=== PATIENT | male | born 1950 | race Caucasian/White ===

== ENCOUNTER → 2019-04-05 12:06 | Outpatient (BNVA) | payer MEDICARE, MEDICAID, SELFPAY | PROVIDERS: Family Provider Family Medicine; Visit Provider Internal Medicine Cardiovascular Disease | DX: I42.9 Cardiomyopathy, unspecified (principal); I10 Essential (primary) hypertension; J44.9 Chronic obstructive pulmonary disease, unspecified; E11.9 Type 2 diabetes mellitus without complications; F17.210 Nicotine dependence, cigarettes, uncomplicated; Z79.899 Other long term (current) drug therapy | CPT/HCPCS: 80048; 83880; 85025 ==

== ENCOUNTER 2019-04-10 18:14 | Observation (INO) | payer MEDICARE, MEDICAID, SELFPAY ==
[2019-04-09 12:03] VITALS: BMI 24.3
[2019-04-10] VITALS (30 sets, daily range): BP systolic 105–152; BP diastolic 59–90; PULSE 64–94; RESP 15–33; TEMP 36.6; O2SAT 90–99
[2019-04-10] MEDS: diphenhydrAMINE 50 mg Capsule PO (08:17)
--- NOTE | 2019-04-10 08:18 | P.HP_ITS ---
Providers/Chief Complaint Admitting Physician: TONY Tijerina MD Primary Care Provider: Satish Borges Chief Complaint: left heart cath History of Present Illness Christopher Romero is a 68 year old male with a history of coronary disease, status post coronary artery bypass surgery, is presenting with increasing shortness of breath and chest pain. He had a myocardial perfusion imaging which revealed areas of fixed defects with no significant reversible defects. He had a single-vessel bypass surgery many years ago and the cardiac authorization in 2009 revealed total occlusion of the venous graft to the RCA. He had fairly good collaterals from the LAD and circumflex artery. The left-sided vessels were found to have only mild diffuse disease. His echocardiogram revealed ejection fraction of around 29%. This was a significant drop from the previous echocardiogram. In view of his ongoing symptoms and the significant drop in the LV ejection fraction, noted to further evaluate his coronary status, a cardiac catheterization was recommended. Has significant impairment of his functional status because of the shortness of breath. He is known to have high blood pressure, COPD/emphysema, type 2 diabetes, peripheral neuropathy and obstructive sleep apnea. Review of Systems Narrative: CONSTITUTIONAL: No fever or chills. EYES: No blurring of vision or other visual disturbances lately. ENT: No hoarseness of voice, auditory disturbances or sore throat. CARDIOVASCULAR: As mentioned above. RESPIRATORY: Progressive shortness of breath as mentioned above. GASTROINTESTINAL: No hematemesis or melena. GENITOURINARY: Chronic kidney disease INTEGUMENTARY: No skin rashes or history of skin cancer. NEURO: No transient ischemic attacks or amaurosis. PSYCHIATRIC: No history of psychosis or major depression. HEMATOLOGIC: No bleeding disorders or significant anemia. ENDOCRINE: Type 2 diabetes. MUSCULOSKELETAL: No recent joint pain or swelling. ALLERGY/IMMUNOLOGY: As mentioned above. Medications/Allergies Home Medications Medication Instructions Recorded Confirmed Last Taken Type Janumet XR 1 tab PO BID 04/09/19 04/10/19 04/09/19 07:10 History aspirin 81 mg PO DAILY 04/09/19 04/10/19 04/10/19 07:05 History budesonide-formoterol [Symbicort] 2 puff INHALATION BID 04/09/19 04/10/19 04/10/19 07:05 History clonazepam 0.5 mg PO BEDTIME 04/09/19 04/10/19 04/10/19 07:05 History cyclobenzaprine 10 mg PO TID PRN 04/09/19 04/10/19 04/10/19 07:05 History gabapentin 400 mg PO DAILY 04/09/19 04/10/19 04/10/19 07:05 History gemfibrozil 600 mg PO BID 04/09/19 04/10/19 04/10/19 07:05 History glipizide 5 mg PO DAILY 04/09/19 04/10/19 04/09/19 07:10 History lisinopril 10 mg PO BID 04/09/19 04/10/19 04/10/19 07:05 History magnesium oxide 400 mg PO DAILY 04/09/19 04/10/19 04/10/19 07:05 History nebivolol [Bystolic] 2.5 mg PO DAILY 04/09/19 04/10/19 04/10/19 07:05 History omeprazole 20 mg PO DAILY 04/09/19 04/10/19 04/10/19 07:05 History ropinirole [Requip XL] 4 mg PO TID 04/09/19 04/10/19 04/10/19 07:05 History tiotropium bromide [Spiriva with 1 cap INHALATION DAILY 04/09/19 04/10/19 04/10/19 07:05 History HandiHaler] Allergies Allergy/AdvReac Type Severity Reaction Status Date / Time amoxicillin Allergy ALGY-Rash Verified 04/10/19 08:10 atorvastatin [From Lipitor] Allergy Unknown Verified 04/10/19 08:10 metoprolol Allergy Unknown Verified 04/10/19 08:10 Aeeeoha-Pjc-Qfy Reductase Allergy Unknown Verified 04/10/19 08:10 Inhibitor Sulfa (Sulfonamide Allergy Unknown Verified 04/10/19 08:10 Antibiotics) tramadol Allergy ADR-Nausea, Verified 04/10/19 08:10 ADR-Vomiting varenicline [From Chantix] Allergy ADR-Halluci Verified 04/10/19 08:10 vladimir [facility] PFS: Medical History ASHD (arteriosclerotic heart disease) Chest pain COPD (chronic obstructive pulmonary disease) Cough Diabetes mellitus, type II Erectile dysfunction Essential hypertension Hyperlipidemia Ischemic cardiomyopathy IVIS (obstructive sleep apnea) Other emphysema Peripheral neuropathy Restless leg syndrome SOB (shortness of breath) Tobacco dependence Surgical History S/P CABG x 1 SVG --> RCA Family History Father Other emphysema Social History Smoking and tobacco status: current every day smoker cigarettes Packs smoked per day: 1 Years cigarettes smoked: 40 Second hand smoke exposure: No Vital Signs Weight: Weight last 48 hrs Weight 151 lb Blood pressure 152/74 with a heart rate of 92 and respiratory rate of 17/min. He is afebrile. Oxygen saturation 99% room air. Physical Exam Narrative: EXAM NARRATIVE: GENERAL: The patient is alert and oriented times three. Not in any acute distress. Somewhat emaciated. HEENT: No significant pallor, icterus or lymphadenopathy.Oral cavity: There are no mucous membrane lesions. NECK: Trachea appears to be central. No masses noted. No JVD or thyromegaly appreciated. RESPIRATORY: Chest is symmetrical. No intercostals muscle retraction or any accessory muscle activation. There is no chest wall tenderness. Breath sounds are heard bilaterally. No rales or rhonchi heard. No evidence of any consolidation. Intensity of the breath sounds are diminished in the bases. BREASTS: Deferred. HEART: The heart sounds are normal. No S3 or S4. Short systolic murmur in the left sternal border. No diastolic murmurs. No pericardial rub ABDOMEN: No vessel pulsations or distention. No tenderness. No organomegaly appreciated. Bowel sounds are normally heard. : Deferred. RECTAL: Deferred. LYMPHATIC: No lymphadenopathy noted in the neck or groin. EXTREMITIES: No edema or cyanosis. No clubbing. Peripheral pulses are palpated in fairly good volume and amplitude MUSCULOSKELETAL: No acute joint deformities or swelling SKIN: There are no significant scars or skin rash noted. NEUROPSYCHIATRIC: The patient is alert and oriented x3. Appears to be in a good mood. No tremors or rigidity noted. Data Imaging^: Other Imaging: My impression: The myocardial perfusion imaging revealed from January 2019 revealed #1. Myocardial perfusion imaging revealing areas of persistent decreased tracer uptake in the anteroseptal, inferoseptal, septal and apical segments, suggestive of myocardial scarring versus attenuation artifacts. #2. Markedly diminished LV ejection fraction of 25%. #3. LV wall motion abnormalities as mentioned above. #4. Moderately dilated LV cavity with an end-systolic volume of 155 mL. No significant coronary ischemia, based in the above findings. The above features may suggest a nonischemic form of cardiomyopathy. Clinical correlation is recommended The echocardiogram from January 2019 revealed Severe diffuse hypokinesia left ventricle with ejection fraction around 29%. Mildly dilated LV cavity. Mildly increased left atrial size. Thickened aortic valve. There is no pericardial effusion. There are no intracardiac masses. No previous study is available for comparison. A&P Assessment and plan (1) Chest pain: In view of the patient's ongoing chest pain, shortness of breath, worsening LV systolic function, possibility of underlying coronary ischemia causing this is a strong consideration. Even though the Win perfusion imaging did not reveal any significant ischemia, for further evaluation of his coronary status, a repeat cardiac catheterization would be appropriate. Status: Acute Qualifiers: Chest pain type: precordial pain Qualified Code(s): R07.2 - Precordial pain Code(s): R07.9 - Chest pain, unspecified (2) ASHD (arteriosclerotic heart disease): Patient had single-vessel coronary bypass surgery after an attempted PCI of the right coronary artery. Apparently had a dissection of the artery which required emergency single-vessel bypass. He was found to have occluded venous graft by cardiac authorization in 2009. Status: Acute Code(s): I25.10 - Atherosclerotic heart disease of [place] coronary artery without angina pectoris (3) Diabetes mellitus, type II: Patient requires aggressive management of the diabetes. Status: Acute Qualifiers: Diabetes mellitus senior care insulin use: without terminal operator use Diabetes mellitus complication status: with hyperglycemia Qualified Code(s): E11.65 - Type 2 diabetes mellitus with hyperglycemia Code(s): E11.9 - Type 2 diabetes mellitus without complications (4) Ischemic cardiomyopathy: The LV ejection fraction was 29% by echocardiogram. Patient is currently wearing a LifeVest. He may require an ICD for primary prophylaxis in the future. Status: Acute Code(s): I25.5 - Ischemic cardiomyopathy Additional A&P Information Other problems are Chronic kidney disease Mild hyperkalemia Chronic systolic heart failure After reviewing the cardiac authorization data, further management decisions jannette l be made. The risk of bleeding, hematoma, vascular injury, myocardial infarction, CVA, renal failure and other concomitant complications were explained in detail. In view of his chronic kidney disease, worsening of the kidney function requiring hemodialysis was discussed. Patient and the family understood this well and consented to proceed. We will be repeating the BMP today to reevaluate the kidney function the potassium. Based on the results, final decision will be made Coding Level of Care Code Acute Corporate Webmaster for [facility] Fwd Diagnoses Chest pain R07.2 Chest pain type: precordial pain ASHD (arteriosclerotic heart disease) I25.10 Diabetes mellitus, type II E11.65 Diabetes mellitus senior care insulin use: without terminal operator use Diabetes mellitus complication status: with hyperglycemia Ischemic cardiomyopathy I25.5
[2019-04-10 08:55] LABS: Anion Gap 15.4 (5-19); Blood Urea Nitrogen 24 mg/dL (8-23); Calcium 10.1 mg/dL (8.5-10.5); Carbon Dioxide 25 mmol/L (22-29); Chloride 99 mmol/L (98-107); Glomerular Filtration Rate 40.3 mL/min (90-130); Glucose 168 mg/dL (65-115); Osmolality Calculated 279 mOsm/kg (285-295); Potassium 5.4 mmol/L (3.5-5.1); Sodium 134 mmol/L (136-145)
--- NOTE | 2019-04-10 09:05 | SUR.PREOP ---
DR DAVID IN TO DISCUSS PRE OP LAB WORK WITH PATIENT/FAMILY. Procedure postponed at this time. Awaiting further managment in orders. IV fluid orders and future labwork recieved. Noted.
[2019-04-10] MEDS: sodium chloride 0.9% 1,000 ML 125 ML IV (09:15)
--- NOTE | 2019-04-10 09:16 | SUR.PREOP ---
Patient brought back to [facility] pending bed availability. IV fluids started at 135 ml/hr 0.9% NS as ordered. BMP ordered at 1600 as ordered. Patient/Family updated to plan. No c/o voiced at this time. Call light in reach. Family at bedside.
--- NOTE | 2019-04-10 10:09 | SUR.PREOP ---
Patient taken to Out Patient Services for extended recovery and hydration. Pending bed availability. Report to Lenora LOPES.
--- NOTE | 2019-04-10 10:31 | SUR.PREOP ---
1015: PATIENT BROUGHT TO OPS BY DOMINGUEZ LOPES. PT AWAKE AND ALERT. HOOKED TO MONITOR. PT FAMILY PRESENT AND IN ROOM WITH PT. CALL LIGHT IN REACH OF PATIENT. PT IS COMFORTABLE. WILL MONITOR PATIENT UNTIL CATH PROCEDURE AT APPROX 1600.
--- NOTE | 2019-04-10 11:10 | SUR.PREOP ---
1100: PATIENT IS RESTING WITH EYES CLOSED. FAMILY PRESENT AT BEDSIDE.
[2019-04-10 16:25] LABS: Anion Gap 14.1 (5-19); Blood Urea Nitrogen 24 mg/dL (8-23); Calcium 9.3 mg/dL (8.5-10.5); Carbon Dioxide 21 mmol/L (22-29); Chloride 105 mmol/L (98-107); Glomerular Filtration Rate 43.2 mL/min (90-130); Glucose 181 mg/dL (65-115); Osmolality Calculated 281 mOsm/kg (285-295); Potassium 5.1 mmol/L (3.5-5.1); Sodium 135 mmol/L (136-145)
--- NOTE | 2019-04-10 16:42 | XACV_ITS ---
Ht: 168 cm Wt: 70 kg BSA: 1.82 m2 Gender: Male : 1950 Any Known Allergies: Other Exam Priority: Routine Procedure(s): Procedure Description: Diagnostic procedure Procedure Description: Left Heart Catheterization Procedure Description: Venous Graft Catheterization Procedure Description: Coronary Angiography Diagnostic Cath Status: Elective Diagnostic Findings Coronary angiography shows right dominance. The left main is a medium caliber vessel with no significant stenotic lesions. The left hand descending artery is a medium caliber vessel which appears to wrap around the LV apex minimally. It gives off a high diagonal branch with no significant stenotic lesions. Minimal calcification was noted in the proximal segment of the arteries. The lesser complex artery is a medium caliber vessel which also was found to have minimal calcification proximally. The artery gives off a high obtuse marginal branch with no significant stenotic lesions. Left to right collaterals are noted filling up the distal segments of the PDA and the PLV branches of the right coronary artery from the branches of the LAD and circumflex arteries. The right coronary artery appears is a poicl-mq-pudbpv caliber vessel which was found to be totally occluded after the first RV branch. The saphenous venous catheter right coronary artery appears to be chronically occluded. Conclusions This 68-year-old white male with history of hypertension, dyslipidemia, type 2 diabetes, coronary disease, status post coronary bypass surgery, presenting with increasing shortness of breath and chest pains. He had a myocardial perfusion imaging which revealed areas of fixed defects with no significant reversible defects. Patient had echocardiogram done which revealed LV ejection fraction of 29%. Because of his worsening LV systolic function and the ongoing symptoms, in order to further evaluate his coronary status, a cardiac catheterization was recommended. Patient underwent left heart catheterization with a left and right coronary angiogram and LV angiogram today. The findings are as follows. The right coronary artery is chronically occluded. The saphenous venous graft to the right coronary artery also appears to be chronically occluded. Grade 2 uulb-[id number]-[id number] collaterals were noted. The left anterior descending artery and the circumflex artery were found to have minimal disease with no significant stenosis. No significant change from the angiogram findings from 2009. LVEDP was 27 mmHg. LV gram was not performed because of the patient chronic kidney disease. Diagnostic RX Recommendation: medical therapy and/or counseling LV EDP: 27 mmHg Pressures Phase:Rest AO : 165 mmHg / 72 mmHg ( 105 mmHg ) @ 11:25:00 AM 132 mmHg / 76 mmHg ( 101 mmHg ) @ 11:27:00 AM 163 mmHg / 67 mmHg ( 103 mmHg ) @ 11:43:00 AM 164 mmHg / 68 mmHg ( 104 mmHg ) @ 11:43:00 AM LV : 167 mmHg / 6 mmHg / @ 11:43:00 AM 166 mmHg / 7 mmHg / @ 11:43:00 AM Valves Phase:DefaultPhase AV : 4.0 mmHg @ 5:51:54 PM AV Mean Gradient: 8.0 mmHg @ 5:51:54 PM Clinical Evaluation EBL: 5mL-10mL Procedural Details Procedure Consent Obtained. Pre-Procedure Time Out. Identified patient by full name and date of as verbalized by the patient/guarantor. Does the consent match the physician's order: Yes. Accurate & Complete Informed Consent: Yes. Inpatient/Outpatient History & Physical on Chart: Yes. If H&P is completed, is and addenduem needed: No; If yes, is the addendum complete: N/A. Visualize and Verify Site with Patient/Guarantor: N/A. Relevant Radiology Images available: N/A. Pre-op teaching completed and patient verbalized understanding. The risks, benefits, and alternatives of sedation and/or procedure were discussed by physician. The patient agrees to continue. Procedure started. [facility] Clinical Fraility Score: 4: Vulnerable. 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 Chest Pain Symptom Assessment: Atypical Angina. Cardiovascular Instability: No. Correct patient, site and procedure confirmed by cath team. PERRLA. Strong, equal hand wet washer machine bilaterally. Lungs clear x 5 lobes. IV Site on Arrival: 20 gauge in the left anticubital. Pre Procedural Pulses: bilateral dorsalis pedis was 1+. Pre Procedural Pulses: bilateral posterior tibial was 1+. Oxygen started at 2liters/min via nasal canula. IV Fluids: 0.9% NaCl at KVO. 0 mL infused prior to analyst microbiology lab. Baseline sample Acquired. HR: 68 BPM. Physician arrived. bilateral groins was prepped with chloroprep then draped in the usual sterile fashion. Equipment: 5F - Femoral. Heparinized Saline (2 units/mL), 1000 mL bag. Kit, Micropuncture. Cardiac Cath Pack. ACIST Manifold Kit Model BT 2000. Physician scrubbed in. Immediate Pre-Procedure Time Out. Correct Patient: Yes; Correct Procedure: Yes; Correct Site: Yes; Correct Patient Position: Yes; Correct Supplies: Yes; Dried Flammable Prep: Yes; Blood Products Available: N/A;. Lidocaine 1% infiltrated to the right groin. Arterial access obtained with micropuncture set. A CRD 5F JL4 Diagnostic Catheter was advanced over the wire and used for Left coronary angiography. Multiple views taken of left coronary artery. Catheter out. A CRD 5F JR4 Diagnostic Catheter was advanced over the wire and used for Right coronary angiography. Inventory is JJ 5F 11cm Kay Plus Sheath. Multiple views taken of right coronary artery. Catheter out. A 5 lao RCB catheter in over wire. SVG to RCA occluded. Catheter out. A CRD 5F 145 Angled Pig Diagnostic Catheter was advanced over the wire and used for Ventriculography. EDP Sample taken: LV 167/6,29; HR: 76 BPM; SpO2: 97%. Pullback taken: LV 166/7,28; AO 163/67(103); Mean: 8mmHg, Peak to Peak: 4mmHg, SEP: 20sec/min; HR: 76 BPM; SpO2: 97%. Catheter out. Physician scrubbed out. A Suture was successful obtaining hemostatsis at the Right Femoral artery insertion site. Sheath(s) sutured into position with 2-0 silk and sterile 4x4's and Op-site applied over the site. No oozing or signs and symptoms of hematoma noted. Arterial sheath flushed and connected to tranducer and pressure bag with heparinized saline. Post Procedure: Pulses reassessed and unchanged. PERRLA. Strong, equal hand wet washer machine bilaterally. No VTE prophylaxis required. Post-op diagnosis: Cardiomyopathy, single vessel CAD. Complications: none. Contrast type used: Visipaque 320 mgI/mL, 100 mL bottle. Estimated blood loss: 5mL-10mL. Medication's Wasted: Lidocaine 1% = 3 mL. Medication's Wasted: Heparin = 2500 units. Total IV fluids: 55 mL. Procedure completed. Patient transferred by bed to 1st floor. Vital chart was stopped. Site: Right Femoral artery Sheath Size: 5 Fr Hemostasis Method: Suture Hemostasis Success: Successful Procedure Medications Start: 5:13 PM Stop: 5:13 PM Medication: Versed Amount: 1 mg Route: I.V. Start: 5:13 PM Stop: 5:13 PM Medication: Fentanyl Amount: 50 mcg Route: I.V. Start: 5:19 PM Stop: 5:19 PM Medication: Versed Amount: 1 mg Route: I.V. Start: 5:20 PM Stop: 5:20 PM Medication: Fentanyl Amount: 50 mcg Route: I.V. Start: 5:24 PM Stop: 5:24 PM Medication: Heparin Amount: 1500 units Route: I.V. Start: 5:27 PM Stop: 5:27 PM Medication: Versed Amount: 1 mg Route: I.V. Start: 5:33 PM Stop: 5:33 PM Medication: Hydralazine Amount: 10 mg Route: I.V. Start: 5:43 PM Stop: 5:43 PM Medication: Versed Amount: 1 mg Route: I.V. Start: 5:43 PM Stop: 5:43 PM Medication: Hydralazine Amount: 10 mg Route: I.V. I, the attending physician, have reviewed and verified all procedure medications. Yes, all medications given per verbal order History/Risk Factors Hypertension: Yes Dyslipidemia: Yes Diabetic Therapy: Oral Peripheral Arterial Disease (PAD): No Myocardial Infarction (MD): Yes Obesity: No Renal Disease: No Tobacco Use: Current/Recent(w/in 1 year) Prior Interventions PCI: Yes CABG: Yes Valve Surgery: No Report Signatures Finalized by:Dr Aj Tijerina MD [facility] on 04/10/2019 7:34:20 PM
--- NOTE | 2019-04-10 18:27 | P.MISC_ITS ---
Miscellaneous Note Purpose of Documentation: This patient came for an outpatient cardiac authorization today. He was found to be hyperkalemic with a high BUN and creatinine ratio. The morning cardiac catheterization was postponed because of this. He was treated with IV fluid. Repeat BUN and creatinine levels were do wn. His potassium level also came down to the normal level. He underwent a left heart catheterization with a left and right coronary angiogram today. He is admitted to the hospital for IV hydration and close monitoring. He will have a repeat BMP in the morning. If the labs looks okay, he will be discharged home tomorrow. His admission status is observation. Further details of his history and physical, please refer to the outpatient history and physical by me from today. The labs are as follows Abnormal lab results 04/10/19 04/10/19 Range/Units 08:00 15:55 Sodium 134 L 135 L (136-145) mmol/L Potassium 5.4 H (3.5-5.1) mmol/L Carbon Dioxide 21 L (22-29) mmol/L BUN 24 H 24 H (8-23) mg/dL Creatinine 1.7 H 1.6 H (0.7-1.2) mg/dL GFR Calculation 40.3 L 43.2 L (90-130) mL/min Glucose 168 H 181 H (65-115) mg/dL Calculated Osmolal ity 279 L 281 L (285-295) mOsm/k g
[2019-04-10 20:00] LABS: Glucose Point of Care 210 mg/dL (70-110)
--- NOTE | 2019-04-10 21:00 | PC.NURSE ---
Dr. Tijerina in [place] and stated that patient could take his own medications that the facility doesn't supply. Patient/daughter voices understanding. Will monitor.
[2019-04-10] MEDS: lisinopril 10 mg Tablet PO (21:03)
[2019-04-10] MEDS: CLONazepam 0.5 mg Tablet PO (21:03)
[2019-04-10] MEDS: gemfibrozil 600 mg Tablet PO (21:06)
--- NOTE | 2019-04-10 22:47 | PC.NURSE ---
Patient complaining of lying on his back. My butt and back hurt...I've got to do something. This nurse and [employer]ER logged rolled patient onto side and placed a pillow behind his back. Patient now requesting pillow to be removed. Pillow removed per patient request. Will monitor.
--- NOTE | 2019-04-11 01:10 | PC.NURSE ---
Patient in [place] ambulating. Continues to complain of hips hurting, from laying too long. Ice cream given per patient request. Sitting on side of bed. Tylenol given for pain. Will monitor.
[2019-04-11] MEDS: acetaminophen 325 mg Tablet 650 MG PO (01:14)
[2019-04-11 04:16] VITALS: BP 146/84; PULSE 84; RESP 28; TEMP 36.9; O2SAT 91
[2019-04-11 06:22] LABS: Anion Gap 14.1 (5-19); Blood Urea Nitrogen 24 mg/dL (8-23); Calcium 9.2 mg/dL (8.5-10.5); Carbon Dioxide 19 mmol/L (22-29); Chloride 109 mmol/L (98-107); Glomerular Filtration Rate 46.5 mL/min (90-130); Glucose 190 mg/dL (65-115); Osmolality Calculated 286 mOsm/kg (285-295); Potassium 5.1 mmol/L (3.5-5.1); Sodium 137 mmol/L (136-145)
[2019-04-11 06:42] LABS: Glucose Point of Care 186 mg/dL (70-110)
[2019-04-11 07:31] VITALS: BP 158/82; PULSE 72; RESP 30; O2SAT 93
[2019-04-11] MEDS: lisinopril 10 mg Tablet PO (08:09)
[2019-04-11] MEDS: gemfibrozil 600 mg Tablet PO (08:09)
[2019-04-11] MEDS: magnesium oxide 400 mg tablet PO (08:09)
[2019-04-11] MEDS: pantoprazole DR 40 mg Tablet PO (08:10)
[2019-04-11] MEDS: aspirin 81 mg EC Tablet PO (08:10)
[2019-04-11 08:32] VITALS: PULSE 75; RESP 17; O2SAT 97
[2019-04-11 08:36] VITALS: PULSE 78
--- NOTE | 2019-04-11 08:48 | P.PN_ITS ---
Subjective Subjective: Interval history: This is a final progress note patient is feeling okay. No chest pain. No unusual shortness of breath. His vital signs remained stable. Vitals/I&O/Wt Last Vital Signs Temp 98.4 F 04/11/19 04:16 Pulse 78 04/11/19 08:36 Resp 17 04/11/19 08:32 BP 158/82 04/11/19 07:31 Pulse Ox 97 04/11/19 08:32 04/10/19 04/11/19 04/11/19 22:59 06:59 14:59 Intake Total 240 / 240 120 / 120 Output Total 500 / 500 450 / 950 400 / 400 Balance -260 / -260 -450 / -710 -280 / -280 Weight last 48 hrs Weight 151 lb Physical Exam Narrative: EXAM NARRATIVE: GENERAL: The patient is alert and oriented times three. Not in any acute distress. HEENT: No significant pallor, icterus or lymphadenopathy.Oral cavity: There are no mucous membrane lesions. NECK: Trachea appears to be central. No masses noted. No JVD or thyromegaly appreciated. RESPIRATORY: Chest is symmetrical. No intercostals muscle retraction or any accessory muscle activation. There is no chest wall tenderness. Breath sounds are heard bilaterally. No rales or rhonchi heard. No evidence of any consolidation. BREASTS: Deferred. HEART: The heart sounds are normal. No S3 or S4. No new murmurs. No pericardial rub ABDOMEN: No vessel pulsations or distention. No tenderness. No organomegaly a ppreciated. Bowel sounds are normally heard. : Deferred. RECTAL: Deferred. LYMPHATIC: No lymphadenopathy noted in the neck or groin. EXTREMITIES: No edema or cyanosis. No clubbing. Peripheral pulses are palpated in fairly good volume and amplitude MUSCULOSKELETAL: No acute joint deformities or swelling SKIN: There are no significant scars or skin rash noted. NEUROPSYCHIATRIC: The patient is alert and oriented x3. Appears to be in a good mood. No tremors or rigidity noted. Data : 04/11/19 05:49 Other Labs: Abnormal lab results 04/10/19 04/10/19 04/11/19 Range/Units 08:00 15:55 05:49 Sodium 134 L 135 L (136-145) mmol/L Potassium 5.4 H (3.5-5.1) mmol/L Chloride 109 H (98-107) mmol/L Carbon Dioxide 21 L 19 L (22-29) mmol/L BUN 24 H 24 H 24 H (8-23) mg/dL Creatinine 1.7 H 1.6 H 1.5 H (0.7-1.2) mg/dL GFR Calculation 40.3 L 43.2 L 46.5 L (90-130) mL/min Glucose 168 H 181 H 190 H (65-115) mg/dL Calculated Osmolality 279 L 281 L (285-295) mOsm/kg Cardiac catheterization: My impression: The coronary angiogram revealed total occlusion of the right coronary artery, after the RV branch. Mild disease in the left and descending artery and circumflex artery. Elevated LVEDP. A&P Assessment and plan (1) Chronic kidney disease (CKD), stage III (moderate): His repeat BMP shows stable BUN and creatinine. Status: Acute Code(s): N18.3 - Chronic kidney disease, stage 3 (moderate) (2) Ischemic cardiomyopathy: I may start the patient on Entresto. He is advised to stop the lisinopril for today and tomorrow. Start the Entresto day after tomorrow. May continue other medications as it is. Continue the LifeVest. Status: Acute Code(s): I25.5 - Ischemic cardiomyopathy (3) Diabetes mellitus, type II: Importance of aggressive management of the diabetes was discussed. Patient seems to understand this well. Status: Acute Qualifiers: Diabetes mellitus complication status: with hyperglycemia Diabetes mellitus intermediate frame tender insulin use: without intermediate frame tender use Qualified Code(s): E11.65 - Type 2 diabetes mellitus with hyperglycemia Code(s): E11.9 - Type 2 diabetes mellitus without complications (4) ASHD (arteriosclerotic heart disease): The cardiac authorization data was once again discussed. May continue the medications as mentioned above. Status: Acute Code(s): I25.10 - Atherosclerotic heart disease of [place] coronary artery without angina pectoris (5) Chest pain: Patient chest pain, most likely nonischemic. The GERD could be a contributing factor. Since the symptoms are stable, may continue on the current medications. Status: Acute Qualifiers: Chest pain type: precordial pain Qualified Code(s): R07.2 - Precordial pain Code(s): R07.9 - Chest pain, unspecified (6) Benign essential hypertension with target blood pressure below 140/90: I may start him on isosorbide mononitrate 30 mg p.o. daily in addition to the current medications. Because of his intolerance to metoprolol, I may hold off on any beta-jose luis at this time. Status: Acute Code(s): I10 - Essential (primary) hypertension Additional A&P Information Patient's overall cardiovascular status seems to be stable. We will be re- evaluating his LV ejection fraction after 3 months of treatment. Based on the findings, the decision regarding prophylactic ICD will be made. Attestations Medical Necessity Statement*: Discharge home today Coding Level of Care Code Acute Director Of Media for g Fwd Diagnoses Chronic kidney disease (CKD), stage III (moderate) N18.3 Ischemic cardiomyopathy I25.5 Diabetes mellitus, type II E11.65 Diabetes mellitus complication status: with hyperglycemia Diabetes mellitus snf insulin use: without intermediate frame tender use ASHD (arteriosclerotic heart disease) I25.10 Chest pain R07.2 Chest pain type: precordial pain Benign essential hypertension with target blood pressure below 140/90 I10
[2019-04-11 09:11] VITALS: BP 158/82; PULSE 78; RESP 17; TEMP 36.9; O2SAT 97
--- NOTE | 2019-04-11 10:32 | PC.CHAP ---
Pastoral Care Encounter/Spiritual Assessment Type of Contact [] Declined blueberry grower visit [] Patient/Family/Request visit [] Outpatient visit [] Follow-up visit [] Physician referral [] Code/Alert [x] Routine visit [] Staff referral [] Actively dying [] Patient sleeping [x] Family support [] [] Out of room [] Palliative care [] [] Receiving care in room [] Pre-surgical visit [] Trauma [] Long length of stay [] ICU visit [] Other: Relational/Emotional Strength [] Patient feels connected with others/family/visitors/staff [] Distress [] Loneliness/isolation [] Abandonment Spirituality of Patient [x] Person of Mable [x] Attends Jehovah'S Witness of their Mable [] Believes in Prayer [] Reads Bible or Alevism materials [] There are Spiritual issues to be addressed Medical Service Technician Interventions [x] Prayer [] Active listening [] Non-anxious presence [] Spiritual/emotional support [] Crisis/trauma care [] Spiritual counseling [] Bereavement support [] Provided bereavement packet [] Provided Bible/devotional materials [] Provided toy/stuffed animal, coloring book to patient or family member [] Provided Communion [] Anointing/[place] [] Salvation [x] Completed spiritual assessment [] Other: Impact on Illness or Injury [] Angry [] Fearful [] Anxious [] Often cries [] Exhaustion [] Unable to work [] Unable to attend yazidism [] Unable to walk/stand [] Unable to read [] Unable to drive [] Unable to eat/drink [] Unable to sleep [] Unable to be with family [] Patient intubated [] Other: Summary Patient being discharged today. Patient feels he is here because of personal issues at home. Time spent with patient 25min
== END 2019-04-11 10:39 | disposition home or self-care (01) ==
LOC: CSU 18:14
PROVIDERS: Admitting Provider Internal Medicine Cardiovascular Disease; Family Provider Family Medicine; PCP Family Medicine; Visit Provider Internal Medicine Cardiovascular Disease
DX: I25.82 Chronic total occlusion of coronary artery (principal); E78.5 Hyperlipidemia, unspecified; E11.22 Type 2 diabetes mellitus with diabetic chronic kidney disease; I12.9 Hypertensive chronic kidney disease with stage 1 through stage 4 chronic kidney disease, or unspecified chronic kidney disease; N18.3 Chronic kidney disease, stage 3 (moderate); I25.10 Atherosclerotic heart disease of native coronary artery without angina pectoris; Z95.1 Presence of aortocoronary bypass graft; I25.5 Ischemic cardiomyopathy; R07.2 Precordial pain; E11.65 Type 2 diabetes mellitus with hyperglycemia; Z79.82 Long term (current) use of aspirin; J44.9 Chronic obstructive pulmonary disease, unspecified; E11.42 Type 2 diabetes mellitus with diabetic polyneuropathy
CPT/HCPCS: 12345; 36415; 36416; 80048; 82962; 86850; 86900; 93459; 94640; C1769; C1887; C1894; G0378; J0360; J1644; J2001; J2250; J3010; J7030; Q0163; Q9967

== ENCOUNTER → 2019-04-18 10:57 | Outpatient (BNVA) | payer MEDICARE, MEDICAID, SELFPAY | PROVIDERS: Family Provider Family Medicine; PCP Family Medicine; Visit Provider Nurse Practitioner Family | DX: I25.5 Ischemic cardiomyopathy (principal); N18.3 Chronic kidney disease, stage 3 (moderate); I25.10 Atherosclerotic heart disease of native coronary artery without angina pectoris | CPT/HCPCS: 80048 ==

== ENCOUNTER → 2019-04-23 09:05 | Outpatient (BNVA) | payer MEDICARE, MEDICAID, SELFPAY | PROVIDERS: Family Provider Family Medicine; PCP Family Medicine; Visit Provider Internal Medicine Cardiovascular Disease | DX: N18.3 Chronic kidney disease, stage 3 (moderate) (principal) | CPT/HCPCS: 80048 ==

== ENCOUNTER → 2019-05-03 11:23 | Outpatient (BNVA) | payer MEDICARE, MEDICAID, SELFPAY | PROVIDERS: Family Provider Family Medicine; PCP Family Medicine; Visit Provider Internal Medicine Cardiovascular Disease | DX: N18.3 Chronic kidney disease, stage 3 (moderate) (principal) | CPT/HCPCS: 80048 ==

== ENCOUNTER → 2019-05-09 10:23 | Outpatient (BNVA) | payer MEDICARE, MEDICAID, SELFPAY | PROVIDERS: Family Provider Family Medicine; PCP Family Medicine; Visit Provider Internal Medicine Cardiovascular Disease | DX: I25.5 Ischemic cardiomyopathy (principal) | CPT/HCPCS: 80048; 83880 ==

== ENCOUNTER 2019-07-02 13:28 | Outpatient (CLI) | payer MEDICARE, MEDICAID, SELFPAY ==
--- NOTE | 2019-07-02 13:30 | USCV_ITS ---
Christopher Romero Age: 68 Gender: M : 1950 Exam Date: 07/02/2019 13:43 Ordering Phys: Kat Walker Technologist: Phani Carrillo Exam Location: [facility] – [place] Indication: ISCHEMIC CARDIOMYOPATHY BP: 145 / 80 HR: 82 Rhythm: Sinus Technical Quality: Good MEASUREMENTS (Male / Female) Normal Values 2D ECHO LV Diastolic Diameter PLAX 5.1 cm 4.2 - 5.9 / 3.9 - 5.3 cm LV Systolic Diameter PLAX 4.2 cm IVS Diastolic Thickness 0.9 cm 0.6 - 1.0 / 0.6 - 0.9 cm IVS Systolic Thickness 1.0 cm LVPW Diastolic Thickness 1.2 cm 0.6 - 1.0 / 0.6 - 0.9 cm LVPW Systolic Thickness 1.0 cm LVOT Diameter 2.0 cm LV Ejection Fraction 2D Teich 35.5 % LV Ejection Fraction MOD 2C 25.3 % LV Ejection Fraction 2C AL 24.9 % LA Diameter 3.8 cm LA Width 3.9 cm LA Height 4.2 cm RA Width 3.0 cm RA Height 3.5 cm Aorta at Sinotubular Diameter 2.3 cm M-MODE LV Diastolic Diameter MM 6.5 cm 4.2 - 5.9 / 3.9 - 5.3 cm LV Systolic Diameter MM 5.0 cm LV Ejection Fraction MM Teich 44.6 % IVS Diastolic Thickness MM 0.8 cm 0.6 - 1.0 / 0.6 - 0.9 cm IVS Systolic Thickness MM 1.1 cm LVPW Diastolic Thickness MM 1.0 cm 0.6 - 1.0 / 0.6 - 0.9 cm LVPW Systolic Thickness MM 1.3 cm RV Diastolic Diameter MM 1.3 cm Aortic Annulus Diameter 2.8 cm LA Ao Ratio MM 1.4 MV E Point Septal Separation 1.4 cm DOPPLER AV Peak Velocity 184.0 cm/s LVOT Peak Velocity 81.0 cm/s AV Area Cont Eq vti 1.3 cm squared AV Area Cont Eq pk 1.4 cm squared MV Area PHT 5.0 cm squared Mitral E to A Ratio 0.5 MV E' Velocity 6.0 cm/s Mitral E to MV E' Ratio 12.6 Mitral E to LV E' Lateral Ratio 10.1 Mitral E to LV E' Septal Ratio 17.2 TR Peak Velocity 256.0 cm/s TR Peak Gradient 26.3 mmHg TV Peak E Velocity 93.0 cm/s Right Atrial Pressure 3.0 mmHg Pulmonary Artery Systolic Pressu 29.2 mmHg FINDINGS Left Ventricle Diffuse hypokinesia left ventricle with ejection fraction of around 30%. Mildly dilated LV cavity Right Ventricle Normal right ventricular size and systolic function. Right Atrium Normal right atrial size. Left Atrium Mildly increased left atrial size. Mitral Valve Thickened mitral valve. Mild mitral valve regurgitation. Aortic Valve Thickened aortic valve. Tricuspid Valve Trace tricuspid valve regurgitation. Pulmonic Valve Structurally normal pulmonic valve without significant stenosis. There is no pulmonic regurgitation. Pericardium Normal pericardium without effusion. Aorta Normal aortic annulus size. CONCLUSIONS Diffuse hypokinesia left ventricle with ejection fraction of around 30%. Mildly dilated LV cavity. Mildly increased left atrial size. Thickened mitral valve. Mild mitral valve regurgitation. Thickened aortic valve. Trace tricuspid valve regurgitation. Estimated pulmonary artery peak systolic pressure 29 mmHg. There is no pericardial effusion. There are no intracardiac masses. Compared to the previous study from 01/18/2019, there may not be a significant change Dr Aj Tijerina MD [facility] (Electronically Signed) Final Date: 02 Jul 2019 19:03 S
== END 2019-07-02 13:29 | disposition home or self-care (01) ==
PROVIDERS: Family Provider Family Medicine; PCP Family Medicine; Visit Provider Nurse Practitioner Family
DX: I25.5 Ischemic cardiomyopathy (principal); I08.3 Combined rheumatic disorders of mitral, aortic and tricuspid valves
CPT/HCPCS: 93306

== ENCOUNTER → 2019-07-16 11:03 | Outpatient (BNVA) | payer MEDICARE, MEDICAID, SELFPAY | PROVIDERS: Family Provider Family Medicine; PCP Family Medicine; Visit Provider Internal Medicine Cardiovascular Disease | DX: R07.9 Chest pain, unspecified (principal); I25.5 Ischemic cardiomyopathy; I50.33 Acute on chronic diastolic (congestive) heart failure; R06.02 Shortness of breath; I25.10 Atherosclerotic heart disease of native coronary artery without angina pectoris; Z95.810 Presence of automatic (implantable) cardiac defibrillator; I10 Essential (primary) hypertension; E11.65 Type 2 diabetes mellitus with hyperglycemia | CPT/HCPCS: 80048; 83880 ==

== ENCOUNTER → 2019-07-31 11:59 | Outpatient (BNVA) | payer MEDICARE, MEDICAID, SELFPAY | PROVIDERS: Family Provider Family Medicine; PCP Family Medicine; Visit Provider Internal Medicine Cardiovascular Disease | DX: I50.33 Acute on chronic diastolic (congestive) heart failure (principal); Z01.810 Encounter for preprocedural cardiovascular examination | CPT/HCPCS: 80048; 83880 ==

== ENCOUNTER → 2019-08-13 10:29 | Outpatient (BNVA) | payer MEDICARE, MEDICAID, SELFPAY | PROVIDERS: Family Provider Family Medicine; PCP Family Medicine; Visit Provider Internal Medicine Cardiovascular Disease | DX: I25.5 Ischemic cardiomyopathy (principal); I50.33 Acute on chronic diastolic (congestive) heart failure | CPT/HCPCS: 80048; 83880 ==

== ENCOUNTER → 2019-08-27 11:32 | Outpatient (BNVA) | payer MEDICARE, MEDICAID, SELFPAY | PROVIDERS: Family Provider Family Medicine; PCP Family Medicine; Visit Provider Internal Medicine Cardiovascular Disease | DX: I50.33 Acute on chronic diastolic (congestive) heart failure (principal) | CPT/HCPCS: 80048; 83880 ==

== ENCOUNTER 2019-08-29 09:26 | Outpatient (CLI) | payer MEDICARE, MEDICAID, SELFPAY ==
--- NOTE | 2019-08-28 08:00 | USCV_ITS ---
Christopher Romero Age: 69 Gender: M : 1950 Exam Date: 08/29/2019 09:28 Ordering Phys: Aj Tijerina MD Technologist: Sarina Jones [place] [facility] [place]: RENAL STENOSIS Aortic Velocity @ SMA (cm/s) 45.3 RIGHT KIDNEY LEFT KIDNEY Velocity (cm/s) Velocity (cm/s) Sys/Zambrano Sys/Zambrano Resistive Index Resistive Index 155.9 / 19.3 0.88 Proximal Renal Artery 99.8 / 16.5 0.83 148.6 / 21.7 0.85 Mid Renal Artery 99.8 / 19.1 0.81 132.9 / 25.4 0.81 Distal Renal Artery 76.9 / 14.6 0.81 47.3 / 13.5 0.71 Hilar 55.9 / 17.2 0.69 56.7 / 12.5 0.78 Upper Pole 55.5 / 13.7 0.75 71.8 / 14.0 0.80 Mid Pole 40.8 / 11.7 0.71 82.6 / 18.4 0.78 Lower Pole 24.8 / 8.3 0.67 3.40 Renal Aortic Ratio 2.20 Accleration Index (cm/sec2) 571.00 Hilar 2618.0 0 1359.0 Upper Pole 2459.0 0 0 1441.0 Mid Pole 562.00 0 1424.0 Lower Pole 508.00 0 92.5 Kidney Length (mm) 90.6 FINDINGS Elevated renal aortic ratio on the right side Slightly elevated resistive indicis bilaterally Relatively small kidney sizes bilaterally CONCLUSIONS 1. Elevated velocity in the right renal artery, suggestive of 0 to 59% stenosis. 2. Relatively small kidney sizes with elevated resistive indicis, suggestive of medical renal disease No similar previous studies available for comparison Dr Aj Tijerina MD [facility] (Electronically Signed) Final Date: 29 August 2019 23:08 S
== END 2019-08-29 09:27 | disposition home or self-care (01) ==
LOC: RAD 09:30
PROVIDERS: PCP Family Medicine; Visit Provider Internal Medicine Cardiovascular Disease
DX: I10 Essential (primary) hypertension (principal)
CPT/HCPCS: 93975

== ENCOUNTER → 2020-05-21 11:06 | Outpatient (BNVA) | payer MEDICARE, MEDICAID, SELFPAY | PROVIDERS: PCP Family Medicine; Visit Provider Internal Medicine Cardiovascular Disease | DX: R07.9 Chest pain, unspecified (principal); I25.5 Ischemic cardiomyopathy; I50.33 Acute on chronic diastolic (congestive) heart failure; R06.02 Shortness of breath; Z95.810 Presence of automatic (implantable) cardiac defibrillator; I13.0 Hypertensive heart and chronic kidney disease with heart failure and stage 1 through stage 4 chronic kidney disease, or unspecified chronic kidney disease; N18.32 Chronic kidney disease, stage 3b; F17.200 Nicotine dependence, unspecified, uncomplicated | CPT/HCPCS: 80048; 83880 ==

== ENCOUNTER → 2020-06-11 12:05 | Outpatient (BNVA) | payer MEDICARE, MEDICAID, SELFPAY | PROVIDERS: PCP Family Medicine; Visit Provider Internal Medicine Nephrology | DX: N18.32 Chronic kidney disease, stage 3b (principal) | CPT/HCPCS: 80069; 82043; 82310; 83970; 85025 ==

== ENCOUNTER → 2020-12-02 11:25 | Outpatient (BNVA) | payer MEDICARE, MEDICAID, SELFPAY | PROVIDERS: PCP Family Medicine; Visit Provider Internal Medicine Nephrology | DX: N18.32 Chronic kidney disease, stage 3b (principal) | CPT/HCPCS: 80069; 82043; 82306; 82310; 83970 ==

== ENCOUNTER → 2021-05-25 09:33 | Outpatient (BNVA) | payer MEDICARE, MEDICAID, SELFPAY | PROVIDERS: PCP Family Medicine; Visit Provider Internal Medicine Cardiovascular Disease | DX: I25.10 Atherosclerotic heart disease of native coronary artery without angina pectoris (principal); E78.5 Hyperlipidemia, unspecified; Z95.810 Presence of automatic (implantable) cardiac defibrillator; I11.0 Hypertensive heart disease with heart failure; E11.65 Type 2 diabetes mellitus with hyperglycemia; E11.22 Type 2 diabetes mellitus with diabetic chronic kidney disease; N18.32 Chronic kidney disease, stage 3b; Z79.4 Long term (current) use of insulin; Z79.82 Long term (current) use of aspirin; F17.210 Nicotine dependence, cigarettes, uncomplicated | CPT/HCPCS: 80048; 83880; 99214 ==

== ENCOUNTER → 2021-06-08 11:17 | Outpatient (BNVA) | payer MEDICARE, MEDICAID, SELFPAY | PROVIDERS: PCP Family Medicine; Visit Provider Internal Medicine Nephrology | DX: N18.30 Chronic kidney disease, stage 3 unspecified (principal) | CPT/HCPCS: 80069; 82306; 82310; 83970 ==

== ENCOUNTER 2021-07-18 17:03 | Inpatient (IN) | payer MEDICARE, MEDICAID, SELFPAY ==
[2021-07-18] VITALS (8 sets, daily range): BP systolic 116–120; BP diastolic 50–67; PULSE 66–84; RESP 16–20; TEMP 36.6–36.8; O2SAT 92–97; BMI 22.8
--- NOTE | 2021-07-18 17:05 | XRR_ITS ---
PROCEDURE INFORMATION: Exam: XR Chest Exam date and time: 07/18/2021 5:24 PM Age: 70 years old Clinical indication: Pain; Chest pressure; Prior surgery; Surgery type: Pacemaker neck; Additional info: Chest pain TECHNIQUE: Imaging protocol: XR of the chest. Views: 1 view. COMPARISON: CR Chest 1 [place] [id number] 11/06/2015 4:46 PM FINDINGS: Tubes, catheters and devices: Left-sided pacemaker. Lungs: Unremarkable. No consolidation. Pleural spaces: Unremarkable. No pleural effusion. No pneumothorax. Heart/Mediastinum: Unremarkable. No cardiomegaly. Bones/joints: Sternotomy wires. XR/XR chest 1V portable [id number] IMPRESSION: Negative for infiltrate
--- NOTE | 2021-07-18 17:06 | ECG_ITS ---
[facility] Test Date: 2021-07-18 Pat Name: Christopher Romero Department: Room: Gender: Male Catcher Plug: : 1950 Requested By: Hussein Crowley Order Number: [id number] Reese MD: Jack Curtis M.D. Measurements Intervals Ranger Rate: 69 P: 71 RI: 133 QRS: -82 QRSD: 122 T: 89 QT: 428 QTc: 460 Interpretive Statements ELECTRONIC VENTRICULAR PACEMAKER ABNORMAL RHYTHM ECG Compared to ECG 11/07/2015 02:35:16 Sinus rhythm no longer present Left bundle-branch block no longer present Electronically Signed On 07-19-2021 9:21:16 CDT by Jack Curtis M.D. [id number]
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
[2021-07-18 17:56] LABS: Basophils # 0.1 10^3/uL (0.0-0.1); Basophils % 1.3 %; Eosinophils # 0.2 10^3/uL (0.0-0.8); Eosinophils % 2.2 %; Hematocrit 38.1 % (42.0-52.0); Lymphocytes # 1.3 10^3/uL (0.8-4.8); Mean Corpuscular HGB Conc 34.1 g/dL (30.0-36.0); Mean Corpuscular Hemoglobin 32.3 pg (28.0-34.0); Mean Corpuscular Volume 94.5 fl (80-94); Mean Platelet Volume 11.4 fL (7.4-10.4); Monocytes # 0.5 10^3/uL (0.2-0.9); Monocytes % 6.9 %; Neutrophils # 4.79 10^3/uL (1.8-7.7); Neutrophils % 69.3 %; Nucleated Red Blood Cells % 0 %; Platelet Count 168 10^3/cmm (130-400); Red Blood Count 4.03 10^6/uL (4.1-5.3); Red Cell Distribution Width 11.9 % (12.1-15.1); White Blood Count 6.9 10^3/uL (4.0-10.0)
[2021-07-18 18:13] LABS: Alanine Aminotransferase 12 U/L (0-41); Albumin Level 4.5 g/dL (3.5-5.2); Alkaline Phosphatase 129 IU/L (40-130); Anion Gap 20.6 (5-19); Aspartate Amino Transferase 21 U/L (0-40); Blood Urea Nitrogen 64 mg/dL (8-23); Calcium 9.2 mg/dL (8.5-10.5); Carbon Dioxide 22 mmol/L (22-29); Chloride 97 mmol/L (98-107); Globulin 3.4 g/dL (1.3-4.6); Glomerular Filtration Rate 16.3 mL/min (90-130); Glucose 189 mg/dL (65-115); Osmolality Calculated 301 mOsm/kg (285-295); Potassium 5.6 mmol/L (3.5-5.1); Sodium 134 mmol/L (136-145); Total Bilirubin 0.2 mg/dL (0.15-1.2); Total Protein 7.9 g/dL (6.6-8.7)
[2021-07-18 18:14] LABS: Troponin(5th) Baseline 45 ng/L (0-15)
--- NOTE | 2021-07-18 19:06 | ECG_ITS ---
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 Measurements Intervals [place] Rate: 66 P: 70 PA: 137 QRS: -84 QRSD: 124 T: 90 QT: 427 QTc: 448 Interpretive Statements ELECTRONIC VENTRICULAR PACEMAKER ABNORMAL RHYTHM ECG Compared to ECG 07/18/2021 17:10:08 No significant changes Electronically Signed On 07-19-2021 9:27:10 CDT by Jack Curtis M.D. [email or web address]
[2021-07-18] MEDS: morphine 4 mg/mL SDV 1 mL 2 MG IVP ×2 (19:16→21:20)
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
[2021-07-18 19:54] LABS: Troponin 5 2HR 41.93 ng/L (0-15)
[2021-07-18 19:55] LABS: Troponin 5 2HR Delta -3.07 ABS# (0-10)
--- NOTE | 2021-07-18 19:57 | USR_ITS ---
PROCEDURE INFORMATION: Exam: US Duplex Bilateral Extracranial Arteries, Carotid Arteries Exam date and time: 07/18/2021 10:13 PM Age: 70 years old Clinical indication: Syncope and collapse TECHNIQUE: Imaging protocol: Real-time Duplex ultrasound scan of the bilateral carotid and vertebral arteries combining streeter scale, color Doppler and spectral waveform analysis. Bilateral exam. Exam focused on the carotid arteries. COMPARISON: CT cervical spin wo con* [id number] 07/18/2021 5:57 PM FINDINGS: Right Carotid: The peak systolic velocity in the right internal carotid artery is 90.9 cm per second. ICA/CCA = 1.23. There is mild heterogeneous plaque along the distal right CCA, carotid bifurcation and carotid bulb without significant luminal narrowing. Left Carotid: The peak systolic velocity in the left internal carotid artery is 96.3 cm per second. ICA/CCA = 0.94. There is mild heterogeneous plaque along the distal left CCA, carotid bifurcation and carotid bulb without significant luminal narrowing. Antegrade flow is demonstrated in both vertebral arteries. US/CV carotid duplex BI* [id number] IMPRESSION: Mild plaque as described without evidence of hemodynamically significant stenosis at this time based on PSV measurements. Less than 30% ICA stenosis bilaterally. REFERENCES: SRU CRITERIA. The degree of internal carotid artery stenosis is based on criteria defined by the Society of Radiologists in Ultrasound (SRU). Normal is no stenosis. Mild is less than 50% stenosis. Moderate is 50-69% stenosis. Severe is greater than 69% stenosis to near occlusion. Near occlusion is a markedly narrowed lumen. Total occlusion is no detectable patent lumen.
[2021-07-18 20:19] LABS: Magnesium 2.1 mg/dL (1.7-2.3)
[2021-07-18 21:04] LABS: Glucose Point of Care 83 mg/dL (70-110)
[2021-07-18] MEDS: acetaminophen 325 mg Tablet 650 MG PO (21:19)
[2021-07-18] MEDS: sodium polystyrene sulfonate 15 gm/60 mL Btl 30 GM PO (21:19)
[2021-07-18] MEDS: enoxaparin 40 mg/0.4 mL Syringe SUBCUT (21:20)
[2021-07-18] MEDS: gabapentin 400 mg Capsule PO (21:20)
[2021-07-18] MEDS: CLONazepam 1 mg Tablet 2 MG PO (21:20)
[2021-07-18] MEDS: pantoprazole 40 mg SDV IVP (21:21)
[2021-07-18 21:44] LABS: ABG PCO2 40.2 mmHg (35-45); ABG PH Result 7.33 (7.35-7.45); Arterial Blood Gas Hematocrit 37.1 % (42-52); Base Excess ABG -4.6 mmol/L (-2.0-2.0); Blood Gas Allen Test Pos; Blood Gas Sample Site Radial, left; Blood Gas Sample Type Arterial; HCO3 ABG 21.1 mmol/L (22-26); PO2 ABG 53.1 mmHg (80.0-100.0)
--- NOTE | 2021-07-18 23:06 | ECG_ITS ---
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 Measurements Intervals Commerce Rate: 77 P: 72 SD: 131 QRS: -87 QRSD: 132 T: 85 QT: 415 QTc: 471 Interpretive Statements ELECTRONIC VENTRICULAR PACEMAKER ABNORMAL RHYTHM ECG Compared to ECG 07/18/2021 18:56:57 No significant changes Electronically Signed On 07-19-2021 9:27:42 CDT by Jack Curtis M.D. [id number]
[2021-07-19] VITALS (15 sets, daily range): BP systolic 97–141; BP diastolic 60–75; PULSE 73–108; RESP 16–117; TEMP 36.4–38.7; O2SAT 91–95
[2021-07-19 00:13] LABS: Troponin 5 6HR 39.14 ng/L (0-15)
[2021-07-19 00:14] LABS: Troponin 5 6HR Delta -5.86 ng/L (0-12)
--- NOTE | 2021-07-19 00:23 | USCV_ITS ---
Christopher Romero Age: 70 Gender: M : 1950 Exam Date: 07/19/2021 11:17 Ordering Phys: Nilesh Cortes MD Technologist: Sarina Jones Exam Location: [facility] [place] Indication: Syncope BP: 129 / 75 HR: 77 Rhythm: Sinus Technical Quality: Technically difficult study MEASUREMENTS (Male / Female) Normal Values 2D ECHO LV Diastolic Diameter PLAX 4.2 cm 4.2 - 5.9 / 3.9 - 5.3 cm LV Systolic Diameter PLAX 2.1 cm LV Chamber Size 3.3 cm IVS Diastolic Thickness 0.9 cm 0.6 - 1.0 / 0.6 - 0.9 cm IVS Systolic Thickness 1.2 cm LVPW Diastolic Thickness 1.0 cm 0.6 - 1.0 / 0.6 - 0.9 cm LVPW Systolic Thickness 1.3 cm RV Chamber Size 2.6 cm LVOT Diameter 2.0 cm LV Ejection Fraction 2D Teich 81.4 % LV Ejection Fraction MOD 2C 31.9 % LV Ejection Fraction 2C AL 30.4 % LA Diameter 2.7 cm LA Width 2.1 cm LA Height 3.5 cm RA Width 2.8 cm RA Height 2.6 cm Aorta at Sinotubular Diameter 1.8 cm IVC Diameter 1.7 cm M-MODE Aortic Annulus Diameter 2.8 cm LA Ao Ratio MM 1.1 MV E Point Septal Separation 0.4 cm DOPPLER AV Peak Velocity 143.0 cm/s LVOT Peak Velocity 68.0 cm/s AV Area Cont Eq vti 1.3 cm squared AV Area Cont Eq pk 1.5 cm squared MV Area PHT 3.3 cm squared Mitral E to A Ratio 0.9 MV E' Velocity 45.5 cm/s Mitral E to MV E' Ratio 8.3 Mitral E to LV E' Lateral Ratio 7.2 Mitral E to LV E' Septal Ratio 9.8 TR Peak Velocity 174.0 cm/s TR Peak Gradient 12.1 mmHg TR Mean Velocity 140.9 cm/s TR Mean Gradient 8.7 mmHg TR Velocity Time Integral 49.3 cm TV Peak E Velocity 67.0 cm/s Right Atrial Pressure 3.0 mmHg Pulmonary Artery Systolic Pressu 15.1 mmHg PV Peak Velocity 69.0 cm/s RV Acceleration Time 0.1 s RV Ejection Time 0.3 s RV AcT/ET 0.4 FINDINGS Left Ventricle Technically poor quality study with poor acoustic windows. The left ventricle appears to be normal in size. There is likely mild global hypokinesis with ejection fraction around 40 to 45%. Grade 1 diastolic dysfunction. Right Ventricle Normal right ventricular size and systolic function. Right ventricle not well visualized. Normal right ventricular systolic pressure. Right Atrium The right atrium is normal in size. Left Atrium The left atrium is normal in size. Mitral Valve Mitral valve not well visualized. Aortic Valve Aortic valve not well visualized. Tricuspid Valve Tricuspid valve not well visualized. Pulmonic Valve Pulmonic valve not well visualized. Pericardium Normal pericardium without effusion. Aorta Normal ascending aorta dimension. IVC Inferior vena cava not visualized. CONCLUSIONS Technically poor quality study with poor acoustic windows. The left ventricle appears to be normal in size. There is likely mild global hypokinesis with ejection fraction around 40 to 45%. Grade [address] Jack Curtis MD (Electronically Signed) Final Date: 20 July 2021 09:24 S
[2021-07-19 03:53] LABS: Add Urine Microscopic? NO; Charge for UA Resulting for Rev
[2021-07-19 04:27] LABS: Bilirubin Urine Neg (Negative); Blood Urine Neg (Negative); Glucose Urine UA Norm (Normal); Ketones Urine Negative (Negative); Leukocyte Esterase Urine Negative (Negative); Nitrate Urine Negative (Negative); Protein Urine Neg (Negative); Urine Appearance Clear (CLEAR); Urine Color Yellow (Yellow); Urobilinogen Urine Norm (Negative); pH Urine 5 (5-7)
[2021-07-19] MEDS: morphine 4 mg/mL SDV 1 mL 2 MG IVP (04:27)
[2021-07-19 05:41] LABS: Basophils # 0.1 10^3/uL (0.0-0.1); Basophils % 1.2 %; Eosinophils # 0.2 10^3/uL (0.0-0.8); Eosinophils % 2.1 %; Hemoglobin 12.8 g/dL (11.7-16.6); Lymphocytes # 1.5 10^3/uL (0.8-4.8); Lymphocytes % 19.4 %; Mean Corpuscular HGB Conc 33.7 g/dL (30.0-36.0); Mean Platelet Volume 11.6 fL (7.4-10.4); Monocytes # 0.6 10^3/uL (0.2-0.9); Monocytes % 7.6 %; Neutrophils # 5.15 10^3/uL (1.8-7.7); Neutrophils % 69.2 %; Nucleated Red Blood Cells % 0 %; Platelet Count 150 10^3/cmm (130-400); White Blood Count 7.5 10^3/uL (4.0-10.0)
[2021-07-19 05:52] LABS: Estmated Average Glucose 151; Hemoglobin A1C 6.9 % (4.0-6.0)
[2021-07-19 05:56] LABS: INR 1.16 (0.8-1.2)
[2021-07-19 06:19] LABS: Anion Gap 18.9 (5-19); Blood Urea Nitrogen 62 mg/dL (8-23); Calcium 8.9 mg/dL (8.5-10.5); Carbon Dioxide 21 mmol/L (22-29); Chloride 101 mmol/L (98-107); Chol HDL Ratio 4.64 mg/dL (1.0-5.00); Cholesterol 130 mg/dL (0-200); Glucose 240 mg/dL (65-115); HDL Cholesterol 28 mg/dL (60-100); LDL Cholesterol Calculated 71 mg/dL (50-129); LDL HDL Ratio 2.54 RATIO (0.00-3.22); NT Pro B Type Natriuretic Pept 226 pg/mL (0-125); Osmolality Calculated 307 mOsm/kg (285-295); Potassium 4.9 mmol/L (3.5-5.1); Sodium 136 mmol/L (136-145); Thyroid Stimulating Hormone 3.92 uIU/mL (0.27-4.20); Triglycerides 155 mg/dL (0-150)
[2021-07-19 06:50] LABS: Glucose Point of Care 258 mg/dL (70-110)
[2021-07-19] MEDS: insulin lispro 100 unit/1 mL SUBCUT ×2 (09:48→18:15)
[2021-07-19] MEDS: ropinirole 2 mg Tablet 4 MG PO ×2 (09:49→17:57)
[2021-07-19] MEDS: aspirin 81 mg EC Tablet PO (09:49)
[2021-07-19] MEDS: gemfibrozil 600 mg Tablet PO ×2 (09:49→17:58)
[2021-07-19] MEDS: sacubitril/valsartan 24-26 mg Tablet 4 EACH PO (09:49)
[2021-07-19] MEDS: ranolazine (12HR) 500 mg Tablet PO ×2 (09:49→17:58)
[2021-07-19] MEDS: sertraline 50 mg Tablet PO (09:50)
[2021-07-19 11:43] LABS: Glucose Point of Care 134 mg/dL (70-110)
[2021-07-19] MEDS: sodium chloride 0.9% 500 ML 50 ML IV (13:02)
[2021-07-19 14:04] LABS: Influenza A by IFA Negative (Negative); Influenza B by IFA Negative (Negative)
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
[2021-07-19 15:10] LABS: Adenovirus Not Detected (NOT DETECT); Chlamydia Pneumoniae Not Detected (NOT DETECT); Coronavirus 229E,HKU1,NL63,OC4 Not Detected (NOT DETECT); Human Metapneumovirus Not Detected (NOT DETECT); Human Rhinovirus/Enterovirus Not Detected (NOT DETECT); Influenza A Not Detected (NOT DETECT); Influenza A H1 Not Detected (NOT DETECT); Influenza A H1-2009 Not Detected (NOT DETECT); Influenza A H3 Not Detected (NOT DETECT); Influenza B Not Detected (NOT DETECT); Mycoplasma Pneumoniae Not Detected (NOT DETECT); Parainfluenza Virus Type 1 Not Detected (NOT DETECT); Parainfluenza Virus Type 2 Not Detected (NOT DETECT); Parainfluenza Virus Type 3 Not Detected (NOT DETECT); Parainfluenza Virus Type 4 Not Detected (NOT DETECT); Respiratory Syncytial Virus A Not Detected (NOT DETECT); Respiratory Syncytial Virus B Not Detected (NOT DETECT); SARS-COV-2 Not Detected (NOT DETECT)
--- NOTE | 2021-07-19 15:24 | PC.OT ---
OT evaluation with held this date due patient too sleepy, unable to stay awake to participate in Eval. To attempt on a later date.
[2021-07-19] MEDS: HYDROcodone-acetaminophen 5-325 mg Tablet 1 TAB PO ×2 (15:44→23:43)
--- NOTE | 2021-07-19 16:45 | PC.NURSE ---
Contacted [employer] ([phone]) to send pacemaker interrogation report to [place] fax.
[2021-07-19] MEDS: sacubitril/valsartan 24-26 mg Tablet 3 EACH PO (17:58)
[2021-07-19 18:05] LABS: Glucose Point of Care 282 mg/dL (70-110)
[2021-07-19 21:15] LABS: Glucose Point of Care 65 mg/dL (70-110)
[2021-07-19] MEDS: pantoprazole 40 mg SDV IVP (21:36)
[2021-07-19] MEDS: gabapentin 400 mg Capsule PO (21:38)
[2021-07-19] MEDS: CLONazepam 1 mg Tablet 2 MG PO (21:38)
[2021-07-19] MEDS: enoxaparin 30 mg/0.3 mL Syringe SUBCUT (21:39)
[2021-07-19 21:41] LABS: Glucose Point of Care 84 mg/dL (70-110)
--- NOTE | 2021-07-19 23:13 | PC.NURSE ---
Patient lung sounds are noted to be wet and wheezy bilaterally with respirations at 40 and O2 91% on 2L. Spoke with Dr. Dalton and we are holding patient's fluids at this time.
[2021-07-19] MEDS: ipratropium-albuterol 3 mL Neb INHALATION (23:42)
[2021-07-19] MEDS: FUROsemide 10 mg/mL SDV 2mL 20 MG IVP (23:43)
[2021-07-20] VITALS (15 sets, daily range): BP systolic 95–125; BP diastolic 57–67; PULSE 82–107; RESP 16–34; TEMP 36.3–38; O2SAT 90–95
[2021-07-20 05:29] LABS: Basophils # 0.1 10^3/uL (0.0-0.1); Eosinophils # 0.1 10^3/uL (0.0-0.8); Hematocrit 32.5 % (42.0-52.0); Hemoglobin 10.7 g/dL (11.7-16.6); Lymphocytes # 1.1 10^3/uL (0.8-4.8); Lymphocytes % 16.4 %; Mean Corpuscular HGB Conc 32.9 g/dL (30.0-36.0); Mean Corpuscular Hemoglobin 31.7 pg (28.0-34.0); Mean Corpuscular Volume 96.2 fl (80-94); Mean Platelet Volume 11.8 fL (7.4-10.4); Monocytes # 0.5 10^3/uL (0.2-0.9); Monocytes % 7.2 %; Neutrophils # 5.04 10^3/uL (1.8-7.7); Neutrophils % 73.7 %; Nucleated Red Blood Cells % 0 %; Platelet Count 116 10^3/cmm (130-400); Red Blood Count 3.38 10^6/uL (4.1-5.3); Red Cell Distribution Width 11.9 % (12.1-15.1); White Blood Count 6.8 10^3/uL (4.0-10.0)
[2021-07-20 05:44] LABS: Alanine Aminotransferase 8 U/L (0-41); Albumin Level 3.4 g/dL (3.5-5.2); Alkaline Phosphatase 116 IU/L (40-130); Anion Gap 15.8 (5-19); Aspartate Amino Transferase 12 U/L (0-40); Blood Urea Nitrogen 59 mg/dL (8-23); Calcium 8.5 mg/dL (8.5-10.5); Carbon Dioxide 22 mmol/L (22-29); Chloride 99 mmol/L (98-107); Globulin 3.2 g/dL (1.3-4.6); Glomerular Filtration Rate 24.5 mL/min (90-130); Glucose 268 mg/dL (65-115); Osmolality Calculated 300 mOsm/kg (285-295); Potassium 4.8 mmol/L (3.5-5.1); Sodium 132 mmol/L (136-145); Total Bilirubin 0.2 mg/dL (0.15-1.2); Total Protein 6.6 g/dL (6.6-8.7)
[2021-07-20 06:26] LABS: Glucose Point of Care 272 mg/dL (70-110)
--- NOTE | 2021-07-20 07:43 | ECG_ITS ---
[facility] Test Date: 2021-07-20 Pat Name: Christopher Romero Department: Room: 255 Gender: Male Manager Hematology: Vijaya Alvarenga : 1950 Requested By: Nakul Benavides Order Number: [id number] Reese MD: Lynette Lorenzo M.D. Interpretive Statements NAME OF STUDY: LEXISCAN SESTAMIBI STRESS TEST INDICATION: Unstable angina PROCEDURE: At the baseline, the blood pressure was 92/61 mmHg, oxygen saturation 94% with a heart rate of 82 bpm. The electrocardiogram showed A sense V paced rhythm. The Lexiscan was infused over a period of 20 seconds. A total of 0.4 milligrams of Lexiscan was infused. The stress phase was continued for a total of 5 minutes. Heart rate at the end of the stress phase was 90 bpm, oxygen saturation 91 bpm with a blood pressure of 97/56 mmHg. The EKG at the peak infusion revealed a sensed V paced rhythm. Sestamibi was injected 20 seconds after the Lexiscan infusion. Blood pressure at the end of the recovery phase was 95/57 mmHg, oxygen saturation 90% with a heart rate of 90 beats per minute. CONCLUSION: 1. Uninterpretable EKG with LexiScan infusion due to paced rhythm. 2. No LexiScan induced chest pain or cardiac arrhythmia. 3. Normal blood pressure and heart rate response. 4. Sestamibi/sestamibi perfusion scan pending; see separate report. Electronically Signed On 07-20-2021 12:14:35 CDT by Lynette Lorenzo M.D. [id number]
[2021-07-20] MEDS: regadenoson 0.4 Mg/5 ml Syringe IVP (08:46)
[2021-07-20] MEDS: sertraline 50 mg Tablet PO (09:44)
[2021-07-20] MEDS: ropinirole 2 mg Tablet 4 MG PO ×2 (09:44→17:08)
[2021-07-20] MEDS: ranolazine (12HR) 500 mg Tablet PO ×2 (09:44→17:09)
[2021-07-20] MEDS: aspirin 81 mg EC Tablet PO (09:44)
[2021-07-20] MEDS: sacubitril/valsartan 24-26 mg Tablet 3 EACH PO ×2 (09:55→17:09)
[2021-07-20] MEDS: gemfibrozil 600 mg Tablet PO ×2 (09:55→17:09)
[2021-07-20 11:10] LABS: Glucose Point of Care 240 mg/dL (70-110)
[2021-07-20] MEDS: insulin lispro 100 unit/1 mL SUBCUT ×2 (12:16→17:34)
--- NOTE | 2021-07-20 14:31 | NMCV_ITS ---
NM lupe perf SPECT r/s* [id number] Christopher Romero Age: 70 Gender: M : 1950 Exam Date: 07/20/2021 07:06 Ordering Phys: Nakul Benavides MD Technologist: IKE Hartman Exam Location: [facility] Indications: CHEST PAIN STRESS TEST Please see separate stress test report [facility] for full findings IMAGE PROTOCOL Rest/Stress 1 Lexiscan Day Radiopharmaceutical Dose (mCi) Administration Site Administered by Rest: Tc-99m 10.8 IV IKE Waller Sestamibi Stress:Tc-99m 32.9 IV IKE Waller Sestamibi Rest: 20-Jul-2021 60 Discovery 630 Stress: 20-Jul-2021 30 Discovery 630 0.4mg Lexiscan. Supine position only as patient was unable to lay prone. SPECT RESULTS Technical Quality: Excellent Raw Data Analysis: Normal Image Corrections: No attenuation or motion correction applied Summed Stress Score: 2 Summed Rest Score: 4 Summed Difference Score: 0 PERFUSION FINDINGS Small sized perfusion abnormality of mild severity of mid inferoseptal and apical septal kuhn on rest images with slightly improved tracer uptake on stress images. FUNCTIONAL RESULTS (calculated via Gated SPECT) Stress Image LV EF (%): 67 Stress EDV (mL):79 TID: 0.92 Stress ESV (mL):26 FUNCTIONAL FINDINGS: The left ventricle is normal in size. Transient Ischemia Dilatation of 0.92. There is normal left ventricular systolic function. The left ventricular ejection fraction is normal with a value of 67%. There is normal left ventricular wall thickening. Abnormal septal motion. Normal end-diastolic and end-systolic volumes. IMPRESSIONS 1. Small sized perfusion abnormality of mild severity of mid inferoseptal and apical septal kuhn. This may represent attenuation artifact or old myocardial infarction. 2. Overall left ventricular systolic function is normal without regional wall motion abnormalities, LVEF=67%. 3. Uninterpretable EKG due to V paced rhythm with Lexiscan infusion. 4. No coronary ischemia based on the study. Lynette Lorenzo MD (Electronically Signed) Final Date: 20 July 2021 12:25 S
[2021-07-20] MEDS: ipratropium-albuterol 3 mL Neb INHALATION ×2 (14:53→20:25)
[2021-07-20 17:06] LABS: Glucose Point of Care 209 mg/dL (70-110)
--- NOTE | 2021-07-20 17:17 | PC.NURSE ---
Spoke with Romeo Alan that works with Dr. Tijerina and he said would interrogate the pace maker tomorrow if it is a [employer] and if not he can get us who we need. [phone]
--- NOTE | 2021-07-20 17:26 | XRR_ITS ---
PROCEDURE INFORMATION: Exam: XR Right Shoulder Exam date and time: 07/20/2021 6:29 PM Age: 70 years old Clinical indication: Pain; Shoulder; Right; Additional info: Pain, unable to raise TECHNIQUE: Imaging protocol: XR Right shoulder. Views: 2 or more views. COMPARISON: CT cervical spin wo con* [id number] 07/18/2021 5:57 PM FINDINGS: Bones/joints: Moderate acromioclavicular joint osteoarthritis. Humeral head elevation suggestive of underlying rotator cuff pathology. Soft tissues: Normal. XR/XR shoulder RT min 2V* [id number] IMPRESSION: 1. Moderate acromioclavicular joint osteoarthritis. 2. Humeral head elevation suggestive of underlying rotator cuff pathology.
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
--- NOTE | 2021-07-20 17:47 | PC.NURSE ---
Spoke with Phani from [employer] and he said the patient did have his pacemaker interrogated and it showed no events since November [address] Hernández notified. Phani said he will try to fax us the report.
[2021-07-20] MEDS: CLONazepam 1 mg Tablet PO (21:29)
[2021-07-20] MEDS: gabapentin 100 mg Capsule 200 MG PO (21:29)
[2021-07-20] MEDS: pantoprazole 40 mg SDV IVP (21:29)
[2021-07-20 21:54] LABS: Glucose Point of Care 189 mg/dL (70-110)
[2021-07-21] VITALS (10 sets, daily range): BP systolic 119–148; BP diastolic 63–79; PULSE 80–93; RESP 17–27; TEMP 36.8–37.7; O2SAT 94–100
[2021-07-21] MEDS: ipratropium-albuterol 3 mL Neb INHALATION ×2 (02:58→08:04)
[2021-07-21 04:28] LABS: ABG PCO2 42.7 mmHg (35-45); ABG PH Result 7.32 (7.35-7.45); Alveolar-Arterial Oxygen Gradi 10.8 mmHg (5-10); Arterial Blood Gas Hematocrit 31.2 % (42-52); Blood Gas Allen Test Pos; Blood Gas Operator Identificat WALCI; Blood Gas Sample Site Radial, right; Blood Gas Sample Type Arterial; Carboxyhemoglobin 1.1 %THgb (0.4-20.1); HGB O2 Sat 94.6 % (95-100); Ionized Calcium Level - ABG 1.2 mmol/L (1.1-1.4); Oxygen Device BIPAP; Oxygen Saturation ABG 96.7; PO2 ABG 76.1 mmHg (80.0-100.0); Potassium Level - ABG 4.4 mmol/L (3.5-5.0); Total Hemoglobin 10.2 g/dL (14-18)
[2021-07-21 06:10] LABS: Basophils % 0.5 %; Eosinophils # 0.1 10^3/uL (0.0-0.8); Eosinophils % 1.6 %; Hematocrit 31.4 % (42.0-52.0); Hemoglobin 10.3 g/dL (11.7-16.6); Lymphocytes # 0.6 10^3/uL (0.8-4.8); Lymphocytes % 11.6 %; Mean Corpuscular HGB Conc 32.8 g/dL (30.0-36.0); Mean Corpuscular Hemoglobin 31.5 pg (28.0-34.0); Mean Platelet Volume 12.1 fL (7.4-10.4); Monocytes # 0.5 10^3/uL (0.2-0.9); Monocytes % 9.1 %; Neutrophils # 4.24 10^3/uL (1.8-7.7); Neutrophils % 76.8 %; Nucleated Red Blood Cells % 0 %; Platelet Count 108 10^3/cmm (130-400); Red Blood Count 3.27 10^6/uL (4.1-5.3); Red Cell Distribution Width 11.9 % (12.1-15.1); White Blood Count 5.5 10^3/uL (4.0-10.0)
[2021-07-21 06:33] LABS: Anion Gap 15.5 (5-19); Blood Urea Nitrogen 62 mg/dL (8-23); Calcium 8.9 mg/dL (8.5-10.5); Carbon Dioxide 21 mmol/L (22-29); Chloride 98 mmol/L (98-107); Glomerular Filtration Rate 25.7 mL/min (90-130); Glucose 317 mg/dL (65-115); Osmolality Calculated 300 mOsm/kg (285-295); Potassium 4.5 mmol/L (3.5-5.1); Sodium 130 mmol/L (136-145)
[2021-07-21 06:40] LABS: Glucose Point of Care 420 mg/dL (70-110)
[2021-07-21] MEDS: gemfibrozil 600 mg Tablet PO (08:15)
[2021-07-21] MEDS: sertraline 50 mg Tablet PO (08:15)
[2021-07-21] MEDS: aspirin 81 mg EC Tablet PO (08:15)
[2021-07-21] MEDS: sacubitril/valsartan 24-26 mg Tablet 3 EACH PO (08:15)
[2021-07-21] MEDS: insulin lispro 100 unit/1 mL SUBCUT ×2 (08:15→12:22)
[2021-07-21] MEDS: ranolazine (12HR) 500 mg Tablet PO (08:15)
[2021-07-21] MEDS: ropinirole 2 mg Tablet 3 MG PO (08:16)
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
[2021-07-21 10:51] LABS: Glucose Point of Care 251 mg/dL (70-110)
[2021-07-21] MEDS: HYDROcodone-acetaminophen 5-325 mg Tablet 1 TAB PO (13:40)
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
== END 2021-07-21 16:04 | disposition home or self-care (01) | DRG 682 ==
LOC: ER 18:09 → MEDSURG 21:07
PROVIDERS: Family Medicine; Admitting Provider Student in an Organized Health Care Education/Training Program; Emergency Provider Family Medicine; PCP Family Medicine; Visit Provider Internal Medicine
DX: N17.9 Acute kidney failure, unspecified (principal); G93.41 Metabolic encephalopathy; S32.010A Wedge compression fracture of first lumbar vertebra, initial encounter for closed fracture; I13.0 Hypertensive heart and chronic kidney disease with heart failure and stage 1 through stage 4 chronic kidney disease, or unspecified chronic kidney disease; I25.810 Atherosclerosis of coronary artery bypass graft(s) without angina pectoris; I50.42 Chronic combined systolic (congestive) and diastolic (congestive) heart failure; R55 Syncope and collapse; N18.30 Chronic kidney disease, stage 3 unspecified; E11.22 Type 2 diabetes mellitus with diabetic chronic kidney disease; E11.42 Type 2 diabetes mellitus with diabetic polyneuropathy; I25.10 Atherosclerotic heart disease of native coronary artery without angina pectoris; I25.82 Chronic total occlusion of coronary artery; Z95.1 Presence of aortocoronary bypass graft; Z95.810 Presence of automatic (implantable) cardiac defibrillator; E78.5 Hyperlipidemia, unspecified; G47.30 Sleep apnea, unspecified; Z99.89 Dependence on other enabling machines and devices; J43.9 Emphysema, unspecified; I25.5 Ischemic cardiomyopathy; G25.81 Restless legs syndrome; F17.210 Nicotine dependence, cigarettes, uncomplicated; V89.0XXA Person injured in unspecified motor-vehicle accident, nontraffic, initial encounter; E86.0 Dehydration; Z79.82 Long term (current) use of aspirin; Z79.4 Long term (current) use of insulin; I95.9 Hypotension, unspecified; I44.7 Left bundle-branch block, unspecified; M25.511 Pain in right shoulder; M54.50 Low back pain, unspecified; E87.5 Hyperkalemia
CPT/HCPCS: 36415; 36416; 36600; 70450; 71045; 72100; 72125; 73030; 78452; 80048; 80051; 80053; 80061; 81003; 82330; 82803; 82805; 82962; 83036; 83735; 83880; 84100; 84443; 84484; 85025; 85610; 86140; 87635; 87804; 93005; 93017; 93306; 93880; 94640; 94660; 94664; 96372; 96374; 97110; 97161; 97167; 97530; 99285; A9500; C9113; G0378; J1650; J1815; J1940; J2270; J2785; J7040

== ENCOUNTER → 2021-07-28 12:56 | Outpatient (BNVA) | payer MEDICARE, MEDICAID, SELFPAY | PROVIDERS: PCP Family Medicine; Visit Provider Nurse Practitioner Family | DX: I25.10 Atherosclerotic heart disease of native coronary artery without angina pectoris (principal); I11.0 Hypertensive heart disease with heart failure; I50.33 Acute on chronic diastolic (congestive) heart failure; F17.210 Nicotine dependence, cigarettes, uncomplicated | CPT/HCPCS: 99214 ==

== ENCOUNTER → 2021-08-18 11:45 | Outpatient (BNVA) | payer MEDICARE, MEDICAID, SELFPAY | PROVIDERS: PCP Family Medicine; Visit Provider Internal Medicine Cardiovascular Disease | DX: Z09 Encounter for follow-up examination after completed treatment for conditions other than malignant neoplasm (principal); R55 Syncope and collapse; N17.9 Acute kidney failure, unspecified; E78.5 Hyperlipidemia, unspecified; I50.33 Acute on chronic diastolic (congestive) heart failure; E11.22 Type 2 diabetes mellitus with diabetic chronic kidney disease; N18.30 Chronic kidney disease, stage 3 unspecified; Z79.4 Long term (current) use of insulin; E11.65 Type 2 diabetes mellitus with hyperglycemia; I25.10 Atherosclerotic heart disease of native coronary artery without angina pectoris; Z95.810 Presence of automatic (implantable) cardiac defibrillator; I25.5 Ischemic cardiomyopathy; F17.210 Nicotine dependence, cigarettes, uncomplicated | CPT/HCPCS: 99214 ==

== ENCOUNTER → 2021-11-16 15:03 | Outpatient (BNVA) | payer MEDICARE, MEDICAID, SELFPAY | PROVIDERS: PCP Family Medicine; Visit Provider Internal Medicine Cardiovascular Disease | DX: I13.0 Hypertensive heart and chronic kidney disease with heart failure and stage 1 through stage 4 chronic kidney disease, or unspecified chronic kidney disease (principal); E11.22 Type 2 diabetes mellitus with diabetic chronic kidney disease; F17.210 Nicotine dependence, cigarettes, uncomplicated; N18.30 Chronic kidney disease, stage 3 unspecified; I50.22 Chronic systolic (congestive) heart failure; Z79.84 Long term (current) use of oral hypoglycemic drugs; I25.10 Atherosclerotic heart disease of native coronary artery without angina pectoris; R07.2 Precordial pain; E11.65 Type 2 diabetes mellitus with hyperglycemia; J06.9 Acute upper respiratory infection, unspecified; E78.5 Hyperlipidemia, unspecified; R63.4 Abnormal weight loss; Z68.21 Body mass index [BMI] 21.0-21.9, adult; Z95.810 Presence of automatic (implantable) cardiac defibrillator | CPT/HCPCS: 99214 ==

== ENCOUNTER → 2021-12-08 10:21 | Outpatient (BNVA) | payer MEDICARE, MEDICAID, SELFPAY | PROVIDERS: PCP Family Medicine; Referring Provider Family Medicine; Visit Provider Orthopaedic Surgery | DX: M25.561 Pain in right knee (principal) | CPT/HCPCS: 73560; 73565; 99204 ==

== ENCOUNTER → 2022-01-12 09:35 | Outpatient (BNVA) | payer MEDICARE, MEDICAID, SELFPAY | PROVIDERS: PCP Family Medicine; Visit Provider Orthopaedic Surgery | DX: M25.569 Pain in unspecified knee (principal) | CPT/HCPCS: 99213 ==

== ENCOUNTER 2022-01-14 06:00 | Outpatient (RCR) | payer MEDICARE, MEDICAID, SELFPAY | END 2022-02-13 23:59 | disposition home or self-care (01) | LOC: WPT 06:00 | PROVIDERS: PCP Family Medicine; Visit Provider Orthopaedic Surgery | DX: M25.561 Pain in right knee (principal) | CPT/HCPCS: 97110; 97163; 97530 ==

== ENCOUNTER → 2022-01-19 09:50 | Outpatient (BNVA) | payer MEDICARE, MEDICAID, SELFPAY | PROVIDERS: PCP Family Medicine; Visit Provider Nurse Practitioner | DX: N18.32 Chronic kidney disease, stage 3b (principal) | CPT/HCPCS: 80069; 82043; 82306; 82542; 85025 ==

== ENCOUNTER → 2022-01-29 09:17 | Outpatient (BNVA) | payer MEDICARE, MEDICAID, SELFPAY | PROVIDERS: PCP Family Medicine; Visit Provider Nurse Practitioner | DX: N18.30 Chronic kidney disease, stage 3 unspecified (principal) | CPT/HCPCS: 80069; 82043 ==

== ENCOUNTER → 2022-02-10 08:43 | Outpatient (BNVA) | payer MEDICARE, MEDICAID, SELFPAY | PROVIDERS: PCP Family Medicine; Visit Provider Orthopaedic Surgery | DX: M25.561 Pain in right knee (principal) | CPT/HCPCS: 99213 ==

== ENCOUNTER → 2022-03-12 08:35 | Outpatient (BNVA) | payer MEDICARE, MEDICAID, SELFPAY | PROVIDERS: PCP Family Medicine; Visit Provider Internal Medicine Cardiovascular Disease | DX: Z45.02 Encounter for adjustment and management of automatic implantable cardiac defibrillator (principal) | CPT/HCPCS: 93284 ==

== ENCOUNTER → 2022-05-25 10:04 | Outpatient (BNVA) | payer MEDICARE, MEDICAID, SELFPAY | PROVIDERS: PCP Family Medicine; Visit Provider Internal Medicine Nephrology | DX: N18.32 Chronic kidney disease, stage 3b (principal) | CPT/HCPCS: 80069; 82043; 82306; 82542; 85025 ==

== ENCOUNTER → 2022-09-27 11:10 | Outpatient (BNVA) | payer MEDICARE, MEDICAID, SELFPAY | PROVIDERS: PCP Family Medicine; Visit Provider Internal Medicine Nephrology | DX: N18.30 Chronic kidney disease, stage 3 unspecified (principal) | CPT/HCPCS: 80069; 82043; 82306; 85025 ==

== ENCOUNTER 2023-03-24 12:44 | Inpatient (IN) | payer MEDICARE, SELFPAY ==
[2023-03-24] VITALS (9 sets, daily range): BP systolic 137–174; BP diastolic 55–92; PULSE 64–72; RESP 16–26; TEMP 36.6–36.9; O2SAT 96–100; BMI 26.4; BMI 27.2
--- NOTE | 2023-03-24 12:47 | XR_ITS ---
WS: [id number] XR chest 1V portable [id number] REASON FOR EXAM: sob FINDINGS: Chest is unchanged compared to 07/21/2021. Cardiac device over the left hemithorax with multiple leads to the right heart. Normal thoracic aorta. Normal heart size. Calcified granulomatous disease in both hemithoraces. No acute or subacute pulmonary parenchymal or pleural abnormality. IMPRESSION: Stable chest without acute abnormality.
--- NOTE | 2023-03-24 13:30 | ECG_ITS ---
[facility] Test Date: 2023-03-24 Pat Name: Christopher Romero Department: Room: Gender: Male Figurine Maker: : [id number] Requested By: Adeel Wall Order Number: [id number] Reese MD: Kurtis Hahn M.D. Measurements Intervals [place] Rate: 64 P: 66 AK: 100 QRS: -79 QRSD: 131 T: 128 QT: 456 QTc: 472 Interpretive Statements ELECTRONIC VENTRICULAR PACEMAKER Compared to ECG 07/19/2021 00:04:09 No significant changes Electronically Signed On 03-25-2023 9:30:18 SAND CUTTER by Kurtis Hahn M.D. [email or web address]
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
[2023-03-24 14:05] LABS: Basophils % 0.6 %; Eosinophils % 0.2 %; Hematocrit 31.5 % (37-53); Lymphocytes # 0.6 10^3/uL (0.8-4.8); Mean Corpuscular HGB Conc 31.4 g/dL (30-55); Mean Corpuscular Hemoglobin 31.7 pg (27-33); Mean Platelet Volume 11.7 fL (7.4-10.4); Monocytes # 0.1 10^3/uL (0.2-0.9); Monocytes % 2.1 %; Neutrophils # 5.53 10^3/uL (1.8-7.7); Neutrophils % 87.6 %; Nucleated Red Blood Cells % 0 %; Platelet Count 183 10^3/cmm (157-399); Red Blood Count 3.12 10^6/uL (3.85-5.65); Red Cell Distribution Width 14.5 % (12.1-15.1); White Blood Count 6.31 10^3/uL (3.29-11.43)
[2023-03-24 14:28] LABS: Add Urine Microscopic? YES; Bilirubin Urine Neg (Negative); Blood Urine 2+ (Negative); Glucose Urine UA 4+ (Normal); Ketones Urine Negative (Negative); Leukocyte Esterase Urine Negative (Negative); Nitrate Urine Negative (Negative); Protein Urine 3+ (Negative); Specific Gravity, Urine 1.015 (1.005-1.030); Urine Appearance Clear (CLEAR); Urine Color Yellow (Yellow); Urobilinogen Urine Norm (Negative); pH Urine 5 (5-7)
[2023-03-24 14:29] LABS: Add Urine Culture? No; Bacteria Urine TRACE /hpf; RBC Urine 0-4 /hpf (0-2); Squamous Epithelial Cell Urine 0-4 /hpf (0-5); WBC Urine 0-4 /hpf (0-5)
[2023-03-24 14:30] LABS: Alanine Aminotransferase 12 U/L (0-41); Albumin Level 3.1 g/dL (3.5-5.2); Alkaline Phosphatase 83 U/L (40-130); Anion Gap 22.4 (5-19); Aspartate Amino Transferase 16 U/L (0-40); Blood Urea Nitrogen 58 mg/dL (8-23); Calcium 7.8 mg/dL (8.5-10.5); Carbon Dioxide 19 mmol/L (22-29); Chloride 102 mmol/L (98-107); Globulin 3.5 g/dL (1.3-4.6); Glucose 282 mg/dL (65-115); NT Pro B Type Natriuretic Pept 32280 pg/mL (0-125); Osmolality Calculated 312 mOsm/kg (285-295); Potassium 5.4 mmol/L (3.5-5.1); Sodium 138 mmol/L (136-145); Total Bilirubin 0.2 mg/dL (0.15-1.2); Total Protein 6.6 g/dL (6.6-8.7)
[2023-03-24 15:11] LABS: INR 1.34 (0.8-1.2)
--- NOTE | 2023-03-24 15:12 | CTR_ITS ---
PROCEDURE INFORMATION: Exam: CT Abdomen And Pelvis Without Contrast Exam date and time: 03/24/2023 4:03 PM Age: 72 years old Clinical indication: Other: Dennis, obs nephropathy; Prior surgery; Surgery date: 6+ months; Surgery type: Hernia yesica TECHNIQUE: Imaging protocol: Computed tomography of the abdomen and pelvis without contrast. Radiation optimization: All CT scans at this facility use at least one of these dose optimization techniques: automated exposure control; mA and/or kV adjustment per patient size (includes targeted exams where dose is matched to clinical indication); or iterative reconstruction. COMPARISON: CR XR lumbar spine 2-3V* [id number] 07/20/2021 6:40 PM RADIATION DOSE METRICS: Total DLP (mGy-cm): 615 FINDINGS: Lungs: Trace left-sided pleural effusion. Partially visualized cardiac leads. Diaphragm: No evidence of diaphragmatic defect. Liver: No evidence of focal hepatic lesion within limitation of a noncontrast exam. Gallbladder and bile ducts: Status post cholecystectomy. No evidence of intrahepatic or extrahepatic biliary dilatation. Pancreas: Grossly unremarkable. Spleen: Grossly unremarkable. Adrenal glands: Grossly unremarkable. Kidneys and ureters: No gross renal parenchymal abnormality. No evidence of hydronephrosis or ureteral stone. Stomach and bowel: Few scattered colonic diverticula without evidence of acute diverticulitis. No evidence of bowel obstruction or perienteric inflammatory changes. Appendix: Normal appendix. Intraperitoneal space: No evidence of free air or fluid collection. Vasculature: Moderate aortobiiliac atherosclerosis without evidence of aneurysmal dilitation of abdominal aorta. Lymph nodes: Enlarged right retrocrural node measuring 12 mm short axis. Few nonspecific retroperitoneal nodes, nonenlarged and possibly secondary to lymphovascular congestion. Urinary bladder: Grossly unremarkable. Reproductive: Grossly unremarkable. Bones/joints: No evidence of acute fracture or aggresive osseous lesion. L1 vertebral body anterior wedge compression fracture with approximately 30% height loss. Soft tissues: Diffuse soft tissue edema. No evidence of fluid collection or hematoma in the superficial soft tissues. CT/CT abdomen pelvis wo con [id number] IMPRESSION: 1. No evidence of hydronephrosis. 2. Prominent diffuse superficial soft tissue edema, possibly reflecting anasarca. 3. Trace left-sided pleural effusion. 4. Enlarged retrocrural node, nonspecific. Consider follow-up exam in 6-12 weeks to assess for resolution.
--- NOTE | 2023-03-24 15:52 | PC.PHAR ---
PT TAKES 2-80MG TABS FUROSEMIDE WITH 40 MG TAB FUROSEMIDE DAILY AND DOES NOT TAKE KCL - VERIFIED WITH PT AND PTS FAMILY
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
[2023-03-24 16:41] LABS: D Dimer 3.94 ug/mLFEU (0-0.59)
[2023-03-24 17:07] LABS: Iron 44 ug/dL (59-158); Percent Saturation 12.8 % (20-50); Total Iron Binding Capacity 342 mcg/dl; Unsaturated Iron Binding 298 ug/dL (112-347)
[2023-03-24 17:23] LABS: Procalcitonin 0.12 ng/mL (0-0.5); Vitamin B12 899 pg/mL (232-1245)
--- NOTE | 2023-03-24 17:35 | ECG_ITS ---
[facility] Test Date: 2023-03-24 Pat Name: Christopher Romero Department: Room: 106 Gender: Male Iv Therapy Nurse: : 1950 Requested By: Nakul Benavides Order Number: [id number] Reese MD: Kurtis Hahn M.D. Measurements Intervals [place] Rate: 64 P: 89 IN: 122 QRS: 267 QRSD: 102 T: 125 QT: 423 QTc: 439 Interpretive Statements ELECTRONIC VENTRICULAR PACEMAKER Compared to ECG 03/24/2023 13:30:46 No significant changes Electronically Signed On 03-25-2023 9:29:34 ELECTROPLATER APPRENTICE by Kurtis Hahn M.D. [email or web address]
[2023-03-24 17:40] LABS: Troponin(5th) Baseline 71 ng/L (0-15)
--- NOTE | 2023-03-24 18:17 | ECG_ITS ---
[facility] Test Date: 2023-03-24 Pat Name: Christopher Romero Department: Room: 106 Gender: Male Quantitative Analyst Developer: : 1950 Requested By: Nakul Benavides Order Number: [id number] Reese MD: Kurtis Hahn M.D. Measurements Intervals [place] Rate: 69 P: 119 MO: 135 QRS: 265 QRSD: 87 T: 120 QT: 421 QTc: 451 Interpretive Statements ELECTRONIC VENTRICULAR PACEMAKER Compared to ECG 03/24/2023 17:35:41 No significant changes Electronically Signed On 03-25-2023 9:30:58 LINING PRINTER by Kurtis Hahn M.D. [email or web address]
[2023-03-24 18:28] LABS: ABG PH Result 7.27 (7.35-7.45); Alveolar-Arterial Oxygen Gradi 8.3 mmHg (5-10); Arterial Blood Gas Hematocrit 28.4 % (42-52); Blood Gas Allen Test Pos; Blood Gas Operator Identificat GD; Blood Gas Sample Site Radial, left; Blood Gas Sample Type Arterial; Carboxyhemoglobin 2.2 %THgb (0.4-20.1); HCO3 ABG 20.7 mmol/L (22-26); HGB O2 Sat 92.8 % (95-100); Ionized Calcium Level - ABG 1.1 mmol/L (1.1-1.4); Methemoglobin 0.7 % (0.4-1.5); Oxygen Device NC; Oxygen Saturation ABG 95.6; PO2 ABG 78.9 mmHg (80.0-100.0); PO2 FiO2 Ratio Arterial Blood 0; Potassium Level - ABG 5.1 mmol/L (3.5-5.0); Total Hemoglobin 9.3 g/dL (14-18)
[2023-03-24] MEDS: gemfibrozil 600 mg Tablet PO (18:36)
[2023-03-24] MEDS: FUROsemide 10 mg/mL SDV 10mL 80 MG IVP (18:36)
[2023-03-24] MEDS: heparin 5,000 unit/mL INJ 1 mL 5000 UNIT SUBCUT (18:36)
[2023-03-24 18:50] LABS: Potassium, Radom Urine 25 mmol/L; Urine Creatinine 31 mg/dL (39-259); Urine Random Chloride 94 mmol/L; Urine Random Sodium 96 mmol/L
[2023-03-24 19:38] LABS: Eosinophil Urine No Eosinophils Seen; Urine Eosinophil Count 0 (0-0)
[2023-03-24] MEDS: ipratropium-albuterol 3 mL Neb INHALATION (20:00)
[2023-03-24] MEDS: budesonide 0.5 mg/2 mL Neb INHALATION (20:00)
[2023-03-24 20:43] LABS: Troponin 5 2HR 66.89 ng/L (0-15); Troponin 5 2HR Delta -4.11 ABS# (0-10)
[2023-03-24 21:25] LABS: Glucose Point of Care 442 mg/dL (70-110)
[2023-03-24] MEDS: insulin lispro 100 unit/1 mL SUBCUT (21:25)
[2023-03-24] MEDS: gabapentin 100 mg Capsule 200 MG PO (21:25)
[2023-03-24 23:33] LABS: Troponin 5 6HR 68.42 ng/L (0-15); Troponin 5 6HR Delta -2.58 ng/L (0-12)
[2023-03-25] VITALS (15 sets, daily range): BP systolic 141–178; BP diastolic 59–88; PULSE 60–79; RESP 15–27; TEMP 36.4–37.1; O2SAT 91–99; BMI 26.4
[2023-03-25] MEDS: acetaminophen 325 mg Tablet 650 MG PO (04:03)
[2023-03-25] MEDS: FUROsemide 10 mg/mL SDV 10mL 80 MG IVP ×3 (04:03→18:12)
[2023-03-25] MEDS: morphine 4 mg/mL SDV 1 mL 2 MG IVP (05:08)
[2023-03-25] MEDS: heparin 5,000 unit/mL INJ 1 mL 5000 UNIT SUBCUT ×2 (05:20→18:13)
[2023-03-25 06:18] LABS: Glucose Point of Care 79 mg/dL (70-110)
[2023-03-25 07:30] LABS: Basophils # 0.1 10^3/uL (0.0-0.1); Basophils % 0.9 %; Eosinophils # 0.1 10^3/uL (0.0-0.8); Hematocrit 31.7 % (37-53); Lymphocytes % 25.6 %; Mean Corpuscular HGB Conc 30.6 g/dL (30-55); Mean Corpuscular Hemoglobin 30.8 pg (27-33); Mean Corpuscular Volume 100.6 fl (82-101); Mean Platelet Volume 11.5 fL (7.4-10.4); Monocytes # 0.5 10^3/uL (0.2-0.9); Monocytes % 6.9 %; Neutrophils # 5.01 10^3/uL (1.8-7.7); Neutrophils % 65.1 %; Nucleated Red Blood Cells % 0 %; Platelet Count 182 10^3/cmm (157-399); Red Blood Count 3.15 10^6/uL (3.85-5.65); Red Cell Distribution Width 14.5 % (12.1-15.1)
[2023-03-25] MEDS: ipratropium-albuterol 3 mL Neb INHALATION ×3 (07:37→19:42)
[2023-03-25] MEDS: budesonide 0.5 mg/2 mL Neb INHALATION ×2 (07:37→19:42)
[2023-03-25 07:47] LABS: Estmated Average Glucose 151; Hemoglobin A1C 6.9 % (4.0-6.0)
[2023-03-25 07:49] LABS: Alanine Aminotransferase 9 U/L (0-41); Albumin Level 2.9 g/dL (3.5-5.2); Alkaline Phosphatase 78 U/L (40-130); Anion Gap 18.7 (5-19); Aspartate Amino Transferase 15 U/L (0-40); Blood Urea Nitrogen 62 mg/dL (8-23); Carbon Dioxide 22 mmol/L (22-29); Chloride 106 mmol/L (98-107); Globulin 3.3 g/dL (1.3-4.6); Glucose 74 mg/dL (65-115); Magnesium 1.5 mg/dL (1.7-2.3); Osmolality Calculated 310 mOsm/kg (285-295); Phosphorus 4.9 mg/dL (2.5-4.5); Potassium 4.7 mmol/L (3.5-5.1); Sodium 142 mmol/L (136-145); Total Bilirubin 0.2 mg/dL (0.15-1.2); Total Protein 6.2 g/dL (6.6-8.7)
[2023-03-25 07:57] LABS: Chol HDL Ratio 2.68 mg/dL (1.0-5.00); Cholesterol 142 mg/dL (0-200); HDL Cholesterol 53 mg/dL (60-100); LDL Cholesterol Calculated 78 mg/dL (50-129); LDL HDL Ratio 1.47 RATIO (0.00-3.22); Triglycerides 57 mg/dL (0-150)
[2023-03-25 08:12] LABS: Folate Level 7.7 ng/mL (4.5-32.2)
--- NOTE | 2023-03-25 09:25 | PC.CHAP ---
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 [] Patient/Family/Request visit [] Outpatient visit [] Follow-up visit [] Physician referral [] Code/Alert [x] Routine visit [] Staff referral [] Actively dying [] Patient sleeping [] Family support [] [] Out of room [] Palliative care [] [] Receiving care in room [] Pre-surgical visit [] Trauma [] Long length of stay [] ICU visit [] Other: Relational/Emotional Strength [x] Patient feels connected with others/family/visitors/staff [] Distress [] Loneliness/isolation [] Abandonment Spirituality of Patient [x] Person of Mable [] Attends Anglican of their Mable [x] Believes in Prayer [] Reads Bible or Mu-Ism materials [] There are 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 [x] Prayer [x] Active listening [] Non-anxious presence [x] Spiritual/emotional support [] Crisis/trauma care [] Spiritual counseling [] Bereavement support [] Provided bereavement packet [] Provided Bible/devotional materials [] Provided toy/stuffed animal, coloring book to patient or family member [] Provided Communion [] Anointing/Hull [] Salvation [x] Completed spiritual assessment [] Other: Impact on Illness or Injury [] Angry [] Fearful [] Anxious [] Often cries [] Exhaustion [] Unable to work [] Unable to attend judaism [] Unable to walk/stand [] Unable to read [] Unable to drive [] Unable to eat/drink [] Unable to sleep [] Unable to be with family [] Patient intubated [] Other: Summary Time spent with patient 5 min
[2023-03-25 10:46] LABS: Glucose Point of Care 162 mg/dL (70-110)
[2023-03-25] MEDS: pantoprazole DR 40 mg Tablet PO (11:06)
[2023-03-25] MEDS: gemfibrozil 600 mg Tablet PO ×2 (11:07→18:12)
[2023-03-25] MEDS: aspirin 81 mg EC Tablet PO (11:07)
[2023-03-25] MEDS: ropinirole 0.25 mg Tablet 0.5 MG PO ×3 (11:07→21:04)
[2023-03-25] MEDS: sertraline 100 mg Tablet 50 MG PO (11:07)
[2023-03-25] MEDS: insulin glargine 100 units/1 mL 10 UNIT SUBCUT (11:08)
[2023-03-25] MEDS: magnesium sulfate premix 1 GM/100 ML PIGGYBACK IV (11:08)
[2023-03-25] MEDS: insulin lispro 100 unit/1 mL SUBCUT ×2 (12:44→21:04)
--- NOTE | 2023-03-25 13:12 | P.PN_ITS ---
Subjective 2 Subjective: No acute events overnight. Today morning patient seen resting comfortably in bed, dozed off with his milk in his hands. Wakes up to verbal stimulus and able to complete conversation. States he had a restless night and slept only at 6 AM. Complaining of pain and restlessness legs. Denies any nausea vomiting, headache. Breathing little better. Urine output appreciated. Vitals/I&O/Wt Last Vital Signs Temp 97.6 F 03/25/23 12:00 Pulse 67 03/25/23 12:00 Resp 15 03/25/23 12:00 BP 178/88 03/25/23 12:00 Pulse Ox 91 03/25/23 12:00 O2 Del Method Nasal Cannula 03/25/23 12:00 O2 Flow Rate 2 03/25/23 07:36 03/24/23 03/25/23 03/25/23 22:59 06:59 14:59 Intake Total 700 / 700 700 / 700 Output Total 1150 / 1150 700 / 1850 1850 / 1850 Balance -1150 / -1150 0 / -1150 -1150 / -1150 Weight last 48 hrs Weight 74.191 kg Weight 74.191 kg Weight 75.659 kg Weight 76.476 kg Weight 74.389 kg Physical Exam 2 Narrative: General: No acute distress, AO x3, chronically sick appearing on nasal cannula HEENT: PERRLA, pupils bilaterally equal and reactive Chest: Bilateral bronchial breath sounds all over lung dyer with occasional rhonchi and fine crackles present up to mid chest CVS: S1-S2 regular, bradycardia, soft pansystolic murmur at apex, S3 gallops, no rubs Abdomen: Soft, nontender, no organomegaly, bowel sounds present Neuro: No focal deficits, no facial deformity, AO x3, power 5/5 in all limbs Urinary Catheter Management: Coude: Cath Placed During This Visit: yes Reason for Continuing Indwelling Catheter: Accurate Measurement of Urinary Output in Critically Ill Patients Urinary Catheter Date of Insertion: 03/24/23 Urinary Catheter Time of Insertion: 17:40 Data 03/25/23 06:57 03/25/23 06:57 Micro: Microbiology 03/24/23 14:05 Legionella Urinary Antigen - Final Unknown Source A&P Assessment and plan (1) CHF exacerbation: Last known EF of 40 to 45% with grade 1 diastolic dysfunction, global LV hypokinesia in 2021. Fluid restriction up to 1500 cc. Barnes catheterization. Daily weights. And strict input of charting. Overall 2-1/2 L urine output since admission. Increase IV Lasix to 80 mg 3 times daily. Continue with aggressive IV diuresis. If needed will add metolazone. (2) Acute kidney injury superimposed on CKD: Baseline creatinine 1.8-2.4. Currently elevated. Medical reconstruction done for nephrotoxic drugs. Hold off on Entresto. CT abdomen pelvis appreciated. Concerning for anasarca. Barnes catheterization. Monitor BMP daily. Appreciate urine lites, urine creatinine, urine eosinophils, urinalysis. Fena- 9.6 consistent with postrenal/obstructive. Will continue to monitor. Hyperkalemia has resolved. Received D50/10 units of insulin and IV calcium gluconate yesterday. Continue to monitor daily. (3) Encephalopathy: Unknown etiology. Could be in setting of hypoxia versus polypharmacy given worsening renal functions. Appreciate vitamin B12, ABG. Continue with decreased dose of sertraline at 50 cc/h, home dose of gabapentin 200 mg nightly. Start on low-dose of Requip 0.5 3 times daily. It seems patient takes 6 mg twice daily at home. Frequent reorientation. Continue oxygen supplementation keeping saturation 90%. (4) Ischemic cardiomyopathy: ICD in place. No active chest pain. Troponin slightly elevated most likely in setting of renal dysfunction though troponin cycled nonsignificant (5) ASHD (arteriosclerotic heart disease): Continuing home dose of aspirin, statin. Appreciate A1c, lipid panel. (6) Diabetes mellitus, type II: A1c 6.9 Insulin sliding scale at mild dose protocol. Carb consistent diet. Qualifiers: Diabetes mellitus intermodal customer service insulin use: without intermodal customer service use Diabetes mellitus complication status: with hyperglycemia Qualified Code(s): E11.65 - Type 2 diabetes mellitus with hyperglycemia (7) ICD (implantable cardioverter-defibrillator) in place: Plan CODE STATUS: Discussed in detail with the patient. Daughter Benigno will be the healthcare proxy. Patient does not want any kind of resuscitation or CPR. DNR/DNI. Carb consistent diet. Heparin 5000 every 12 hourly for DVT prophylaxis Protonix OPD prophylaxis Attestations 2 Medical Necessity Statement*: Requires further hospitalization for management of hypoxia in setting of congestive heart failure requiring aggressive IV diuresis, ZEYNEP on CKD Diagnoses CHF exacerbation I50.9 Acute kidney injury superimposed on CKD N17.9; N18.9 Encephalopathy G93.40 Ischemic cardiomyopathy I25.5 ASHD (arteriosclerotic heart disease) I25.10 Type 2 diabetes mellitus with hyperglycemia, without long-term current use of insulin E11.65 Diabetes mellitus skilled nursing insulin use: without intermodal customer service use Diabetes mellitus complication status: with hyperglycemia ICD (implantable cardioverter-defibrillator) in place Z95.810
[2023-03-25 16:58] LABS: Glucose Point of Care 138 mg/dL (70-110)
[2023-03-25 20:04] LABS: Anion Gap 17.9 (5-19); Blood Urea Nitrogen 63 mg/dL (8-23); Calcium 8.2 mg/dL (8.5-10.5); Carbon Dioxide 24 mmol/L (22-29); Chloride 103 mmol/L (98-107); Glucose 205 mg/dL (65-115); Osmolality Calculated 314 mOsm/kg (285-295); Potassium 4.9 mmol/L (3.5-5.1); Sodium 140 mmol/L (136-145)
[2023-03-25 21:03] LABS: Glucose Point of Care 263 mg/dL (70-110)
[2023-03-25] MEDS: gabapentin 100 mg Capsule 200 MG PO (21:04)
[2023-03-26] VITALS (17 sets, daily range): BP systolic 148–168; BP diastolic 70–95; PULSE 62–91; RESP 16–31; TEMP 36.4–37.3; O2SAT 94–100; BMI 26.9
[2023-03-26] MEDS: FUROsemide 10 mg/mL SDV 10mL 80 MG IVP ×2 (00:33→09:50)
[2023-03-26] MEDS: morphine 4 mg/mL SDV 1 mL 2 MG IVP ×2 (00:35→20:56)
[2023-03-26] MEDS: heparin 5,000 unit/mL INJ 1 mL 5000 UNIT SUBCUT ×2 (04:13→17:54)
[2023-03-26 04:19] LABS: Basophils # 0.1 10^3/uL (0.0-0.1); Basophils % 1.6 %; Eosinophils # 0.2 10^3/uL (0.0-0.8); Eosinophils % 3.5 %; Hematocrit 32.9 % (37-53); Lymphocytes % 31.7 %; Mean Corpuscular HGB Conc 30.4 g/dL (30-55); Mean Corpuscular Hemoglobin 30.9 pg (27-33); Mean Corpuscular Volume 101.5 fl (82-101); Mean Platelet Volume 11.4 fL (7.4-10.4); Monocytes # 0.5 10^3/uL (0.2-0.9); Monocytes % 8.3 %; Neutrophils # 3.47 10^3/uL (1.8-7.7); Neutrophils % 54.6 %; Nucleated Red Blood Cells % 0 %; Platelet Count 178 10^3/cmm (157-399); Red Blood Count 3.24 10^6/uL (3.85-5.65); Red Cell Distribution Width 14.4 % (12.1-15.1); White Blood Count 6.35 10^3/uL (3.29-11.43)
[2023-03-26 04:38] LABS: Magnesium 1.6 mg/dL (1.7-2.3)
[2023-03-26 04:57] LABS: Alanine Aminotransferase 10 U/L (0-41); Albumin Level 2.9 g/dL (3.5-5.2); Alkaline Phosphatase 71 U/L (40-130); Anion Gap 16.9 (5-19); Aspartate Amino Transferase 14 U/L (0-40); Blood Urea Nitrogen 63 mg/dL (8-23); Carbon Dioxide 25 mmol/L (22-29); Chloride 108 mmol/L (98-107); Globulin 2.6 g/dL (1.3-4.6); Glucose 51 mg/dL (65-115); Osmolality Calculated 315 mOsm/kg (285-295); Potassium 4.9 mmol/L (3.5-5.1); Sodium 145 mmol/L (136-145); Total Bilirubin 0.2 mg/dL (0.15-1.2); Total Protein 5.5 g/dL (6.6-8.7)
[2023-03-26 06:46] LABS: Glucose Point of Care 50 mg/dL (70-110)
[2023-03-26 07:48] LABS: Glucose Point of Care 126 mg/dL (70-110)
[2023-03-26] MEDS: budesonide 0.5 mg/2 mL Neb INHALATION ×2 (08:02→20:09)
[2023-03-26] MEDS: ipratropium-albuterol 3 mL Neb INHALATION ×3 (08:02→20:09)
[2023-03-26] MEDS: sertraline 100 mg Tablet 50 MG PO (09:50)
[2023-03-26] MEDS: insulin glargine 100 units/1 mL 10 UNIT SUBCUT (09:50)
[2023-03-26] MEDS: aspirin 81 mg EC Tablet PO (09:50)
[2023-03-26] MEDS: pantoprazole DR 40 mg Tablet PO (09:51)
[2023-03-26] MEDS: gemfibrozil 600 mg Tablet PO ×2 (09:51→17:54)
[2023-03-26] MEDS: ropinirole 0.25 mg Tablet 0.5 MG PO ×3 (09:51→20:55)
--- NOTE | 2023-03-26 10:20 | USCV_ITS ---
Christopher Romero Age: 72 Gender: M : 1950 Exam Date: 03/26/2023 11:46 Ordering Phys: Nakul Benavides MD Technologist: Beny Schulte [place] [facility] [place] chf, ef BP: 168 / 86 HR: 74 Rhythm: Sinus Technical Quality: MEASUREMENTS (Male / Female) Normal Values 2D ECHO LVOT Diameter 2.0 cm LV Ejection Fraction MOD 2C 53.5 % LV Ejection Fraction 2C AL 54.3 % LA Diameter 3.5 cm LA Width 3.9 cm LA Height 4.2 cm RA Width 4.1 cm RA Height 4.1 cm Aorta at Sinotubular Diameter 1.8 cm IVC Diameter 2.0 cm M-MODE Aortic Annulus Diameter 2.8 cm LA Ao Ratio MM 1.3 MV E Point Septal Separation 0.7 cm DOPPLER Right Atrial Pressure 3.0 mmHg FINDINGS Left Ventricle Ventricle is relatively poorly seen. There appears to be normal LV size and function. Ejection fraction is estimated at 55%. There are no obvious wall motion disturbances. Grade 1 diastolic dysfunction. Right Ventricle Normal right ventricular size and systolic function. There appears to be a pacemaker wire in the right ventricle Right Atrium The right atrium is normal in size. Left Atrium The left atrium is normal in size. Mitral Valve Structurally normal mitral valve. No mitral valve regurgitation. Aortic Valve Structurally normal trileaflet aortic valve. No aortic valve stenosis. No aortic valve regurgitation. Tricuspid Valve Tricuspid valve not well visualized. Pulmonic Valve Pulmonic valve not well visualized. Pericardium Normal pericardium without effusion. Aorta Normal ascending aorta dimension. IVC The inferior vena cava appears normal. CONCLUSIONS Ventricle is relatively poorly seen. There appears to be normal LV size and function. Ejection fraction is estimated at 55%. There are no obvious wall motion disturbances. Grade 1 diastolic dysfunction. Normal right ventricular size and systolic function. There appears to be a pacemaker wire in the right ventricle The previous study was done in July 2021. It was an equally poor quality study. Overall, the ventricular function seems to be improved. Dr. Jack Curtis MD (Electronically Signed) Final Date: 26 March 2023 15:24 S
[2023-03-26 11:44] LABS: Glucose Point of Care 185 mg/dL (70-110)
[2023-03-26 12:10] LABS: Add Urine Microscopic? YES; Bilirubin Urine Neg (Negative); Blood Urine 2+ (Negative); Glucose Urine UA 2+ (Normal); Ketones Urine Negative (Negative); Leukocyte Esterase Urine Negative (Negative); Nitrate Urine Negative (Negative); Protein Urine 2+ (Negative); Specific Gravity, Urine 1.005 (1.005-1.030); Urine Appearance Clear (CLEAR); Urine Color Colorless (Yellow); Urobilinogen Urine Norm (Negative); pH Urine 6.5 (5-7)
[2023-03-26 12:11] LABS: Add Urine Culture? No; Bacteria Urine TRACE /hpf; Squamous Epithelial Cell Urine 0-4 /hpf (0-5)
[2023-03-26 12:18] LABS: Potassium, Radom Urine 12 mmol/L; Urine Creatinine 16 mg/dL (39-259); Urine Random Chloride 117 mmol/L; Urine Random Sodium 128 mmol/L
[2023-03-26] MEDS: insulin lispro 100 unit/1 mL SUBCUT ×2 (12:23→17:54)
[2023-03-26 12:48] LABS: Eosinophil Urine No Eosinophils Seen; Urine Eosinophil Count 0 (0-0)
[2023-03-26 16:33] LABS: Glucose Point of Care 245 mg/dL (70-110)
--- NOTE | 2023-03-26 16:38 | P.PN_ITS ---
Subjective 2 Subjective: No acute vents overnight. Seen with daughter at bedside. 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 A lot more awake and alert now. Oxygen supplementation at start of interview after 3 L and turned down to 1 L during examination and continued to saturate more than 92%. Vitals/I&O/Wt Last Vital Signs Temp 97.6 F 03/26/23 07:38 Pulse 90 03/26/23 13:41 Resp 18 03/26/23 13:30 BP 168/86 03/26/23 11:23 Pulse Ox 95 03/26/23 13:30 O2 Del Method Nasal Cannula 03/26/23 13:30 O2 Flow Rate 0.5 03/26/23 13:30 03/26/23 03/26/23 03/26/23 06:59 14:59 22:59 Intake Total 400 / 1540 720 / 720 Output Total 2600 / 6500 1600 / 1600 Balance -2200 / -4960 -880 / -880 Weight last 48 hrs Weight 75.75 kg Weight 75.75 kg Weight 74.191 kg Weight 74.191 kg Weight 75.659 kg Weight 76.476 kg Physical Exam 2 Narrative: General: No acute distress, AO x3, chronically sick appearing on nasal cannula HEENT: PERRLA, pupils bilaterally equal and reactive Chest: Bilateral bronchial breath sounds all over lung dyer with occasional rhonchi and fine crackles present up to mid chest CVS: S1-S2 regular, bradycardia, soft pansystolic murmur at apex, S3 gallops, no rubs Abdomen: Soft, nontender, no organomegaly, bowel sounds present Neuro: No focal deficits, no facial deformity, AO x3, power 5/5 in all limbs Urinary Catheter Management: Coude: Cath Placed During This Visit: yes Reason for Continuing Indwelling Catheter: Acute Urinary Retention or Obstruction Urinary Catheter Date of Insertion: 03/24/23 Urinary Catheter Time of Insertion: 17:40 Data 03/26/23 03:54 03/26/23 03:54 Micro: Microbiology 03/24/23 14:05 Bacterial Antigens - Final Urine Kidney A&P Assessment and plan (1) CHF exacerbation: Last known EF of 40 to 45% with grade 1 diastolic dysfunction, global LV hypokinesia in 2021. Resolving. Patient overall around 6.5 L negative Fluid restriction up to 1500 cc. Barnes catheterization. Daily weights. And strict input of charting. Patient already received IV Lasix 80 mg in the morning today. Will hold off on any further diuresis for today. Renal function have continued to remain poor so plan to decrease diuresis for today. Out of bed to chair. PT evaluation. (2) Acute kidney injury superimposed on CKD: Baseline creatinine 1.8-2.4. Currently elevated. Medical reconciliation done for nephrotoxic drugs. Hold off on Entresto. CT abdomen pelvis appreciated. No obstructive nephropathy. Only concerning for anasarca. Barnes catheterization. Monitor BMP daily. Appreciate urine lites, urine creatinine, urine eosinophils, urinalysis. Fena- 9.6 consistent with postrenal/obstructive. Will continue to monitor. Discussed with family that patient's persistent renal dysfunction specially with resolution of symptoms of CHF, patient otherwise clinically improving could be in setting of low EF versus new baseline for patient. We discussed if renal functions do not improve on decreasing diuresis in next 24 hours will plan to consult nephrology. Will plan for limited echocardiogram to reassess EF. No electrolyte abnormalities. (3) Diabetes mellitus, type II: A1c 6.9. Patient having episode of hypoglycemia earlier today morning. Decrease Lantus to 5 units daily, change insulin sliding scale to low-dose protocol with meals. Hold off on at bedtime. Hypoglycemia protocol. Carb consistent diet. 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 Unknown etiology. Could be in setting of hypoxia versus polypharmacy given worsening renal functions. Appreciate vitamin B12, ABG. Continue with decreased dose of sertraline at 50 cc/h, home dose of gabapentin 200 mg nightly, decreased dose of of Requip 0.5 3 times daily. It seems patient takes 6 mg twice daily at home. Frequent reorientation. Continue oxygen supplementation keeping saturation 90%. (5) Ischemic cardiomyopathy: ICD in place. No active chest pain. Troponin slightly elevated most likely in setting of renal dysfunction though troponin cycled nonsignificant (6) ASHD (arteriosclerotic heart disease): Continuing home dose of aspirin, statin. Appreciate A1c, lipid panel. (7) ICD (implantable cardioverter-defibrillator) in place: Plan CODE STATUS: Discussed in detail with the patient. Daughter Benigno will be the healthcare proxy. Patient does not want any kind of resuscitation or CPR. DNR/DNI. Carb consistent diet. Heparin 5000 every 12 hourly for DVT prophylaxis Protonix OPD prophylaxis Attestations 2 Medical Necessity Statement*: Requires further hospitalization for management of persistent renal dysfunction in setting of CKD, congestive heart failure Coding Level of Care Code Acute Code for Chg Fwd Diagnoses CHF exacerbation I50.9 Acute kidney injury superimposed on CKD N17.9; N18.9 Type 2 diabetes mellitus with hyperglycemia, without long-term current use of insulin E11.65 Diabetes mellitus usp insulin use: without usp use Diabetes mellitus complication status: with hyperglycemia Encephalopathy G93.40 Ischemic cardiomyopathy I25.5 ASHD (arteriosclerotic heart disease) I25.10 ICD (implantable cardioverter-defibrillator) in place Z95.810
[2023-03-26] MEDS: gabapentin 100 mg Capsule 200 MG PO (20:55)
[2023-03-26 21:14] LABS: Glucose Point of Care 84 mg/dL (70-110)
[2023-03-27] VITALS (14 sets, daily range): BP systolic 150–176; BP diastolic 69–102; PULSE 75–96; RESP 16–27; TEMP 36.6–37.2; O2SAT 90–97
[2023-03-27 03:57] LABS: Basophils # 0.1 10^3/uL (0.0-0.1); Eosinophils # 0.2 10^3/uL (0.0-0.8); Eosinophils % 3.4 %; Hematocrit 30.8 % (37-53); Lymphocytes # 1.5 10^3/uL (0.8-4.8); Lymphocytes % 21.3 %; Mean Corpuscular HGB Conc 30.8 g/dL (30-55); Mean Corpuscular Hemoglobin 30.9 pg (27-33); Mean Corpuscular Volume 100.3 fl (82-101); Mean Platelet Volume 11.7 fL (7.4-10.4); Monocytes # 0.5 10^3/uL (0.2-0.9); Monocytes % 7.5 %; Neutrophils # 4.55 10^3/uL (1.8-7.7); Neutrophils % 66.5 %; Nucleated Red Blood Cells % 0 %; Platelet Count 162 10^3/cmm (157-399); Red Blood Count 3.07 10^6/uL (3.85-5.65); Red Cell Distribution Width 14.3 % (12.1-15.1); White Blood Count 6.84 10^3/uL (3.29-11.43)
[2023-03-27] MEDS: heparin 5,000 unit/mL INJ 1 mL 5000 UNIT SUBCUT ×2 (04:16→17:38)
[2023-03-27 04:22] LABS: Magnesium 1.6 mg/dL (1.7-2.3); Phosphorus 4.7 mg/dL (2.5-4.5)
[2023-03-27 04:23] LABS: Alanine Aminotransferase 10 U/L (0-41); Alkaline Phosphatase 68 U/L (40-130); Anion Gap 18.8 (5-19); Aspartate Amino Transferase 16 U/L (0-40); Carbon Dioxide 24 mmol/L (22-29); Chloride 105 mmol/L (98-107); Globulin 2.7 g/dL (1.3-4.6); Potassium 4.8 mmol/L (3.5-5.1); Sodium 143 mmol/L (136-145); Total Bilirubin 0.2 mg/dL (0.15-1.2)
[2023-03-27 04:24] LABS: Albumin Level 2.9 g/dL (3.5-5.2); Blood Urea Nitrogen 66 mg/dL (8-23); Calcium 7.9 mg/dL (8.5-10.5); Creatinine Clr Calc Pharmacy 15.0628; Glucose 149 mg/dL (65-115); Osmolality Calculated 318 mOsm/kg (285-295); Total Protein 5.6 g/dL (6.6-8.7)
[2023-03-27 06:18] LABS: Glucose Point of Care 281 mg/dL (70-110)
[2023-03-27] MEDS: budesonide 0.5 mg/2 mL Neb INHALATION (09:01)
[2023-03-27] MEDS: ipratropium-albuterol 3 mL Neb INHALATION ×2 (09:01→14:16)
[2023-03-27] MEDS: insulin lispro 100 unit/1 mL SUBCUT ×3 (09:12→17:38)
[2023-03-27] MEDS: pantoprazole DR 40 mg Tablet PO (09:13)
[2023-03-27] MEDS: sertraline 100 mg Tablet 50 MG PO (09:13)
[2023-03-27] MEDS: gemfibrozil 600 mg Tablet PO ×2 (09:13→17:38)
[2023-03-27] MEDS: aspirin 81 mg EC Tablet PO (09:13)
[2023-03-27] MEDS: insulin glargine 100 units/1 mL 5 UNIT SUBCUT ×2 (09:13→17:38)
[2023-03-27] MEDS: ropinirole 0.25 mg Tablet 0.5 MG PO ×3 (09:13→20:27)
[2023-03-27] MEDS: amlodipine 5 mg Tablet PO (11:00)
[2023-03-27 11:24] LABS: Glucose Point of Care 168 mg/dL (70-110)
--- NOTE | 2023-03-27 12:48 | P.PN_ITS ---
Subjective 2 Subjective: Note no acute events overnight. Patient seen sitting up in chair today. States he is feeling a lot better. Off oxygen supplementation. Complaining of pain and swelling in the left elbow. On examination slight redness on the medial upper arm near the elbow most likely in setting of dependent injury. No tenderness in the elbow no erythema on examination. Urine output of around 4.2 L in last 24 hours. Vitals/I&O/Wt Last Vital Signs Temp 98.5 F 03/27/23 11:09 Pulse 80 03/27/23 11:09 Resp 25 H 03/27/23 11:09 BP 172/74 03/27/23 11:09 Pulse Ox 97 03/27/23 11:09 O2 Del Method Room Air 03/27/23 11:09 O2 Flow Rate 1 03/27/23 09:01 03/26/23 03/27/23 03/27/23 22:59 06:59 14:59 Intake Total 240 / 960 1440 / 2400 480 / 480 Output Total 1000 / 2600 1600 / 4200 625 / 625 Balance -760 / -1640 -160 / -1800 -145 / -145 Weight last 48 hrs Weight 68.039 kg Weight 74.616 kg Weight 74.616 kg Weight 75.75 kg Weight 75.75 kg Physical Exam 2 Narrative: General: No acute distress, AO x3, chronically sick appearing on nasal cannula HEENT: PERRLA, pupils bilaterally equal and reactive Chest: Bilateral bronchial breath sounds all over lung dyer with occasional rhonchi and fine crackles present up to mid chest CVS: S1-S2 regular, bradycardia, soft pansystolic murmur at apex, S3 gallops, no rubs Abdomen: Soft, nontender, no organomegaly, bowel sounds present Neuro: No focal deficits, no facial deformity, AO x3, power 5/5 in all limbs Extremity: Mild erythema present on the left upper arm on the medial aspect near the elbow, no erythema or joint swelling. No tenderness of the elbow joint Urinary Catheter Management: Coude: Cath Placed During This Visit: yes Reason for Continuing Indwelling Catheter: Acute Urinary Retention or Obstruction Urinary Catheter Date of Insertion: 03/24/23 Urinary Catheter Time of Insertion: 17:40 Data 03/27/23 03:42 03/27/23 03:42 A&P Assessment and plan (1) CHF exacerbation: Last known EF of 40 to 45% with grade 1 diastolic dysfunction, global LV hypokinesia in 2021. Resolving. Patient overall around 6.5 L negative Fluid restriction up to 1500 cc. Barnes catheterization. Daily weights. And strict input of charting. Patient already received IV Lasix 80 mg in the morning today. Will hold off on any further diuresis for today. Renal function have continued to remain poor so plan to decrease diuresis for today. Out of bed to chair. PT evaluation. (2) Acute kidney injury superimposed on CKD: Baseline creatinine 1.8-2.4. Currently elevated. Medical reconciliation done for nephrotoxic drugs. Hold off on Entresto. CT abdomen pelvis appreciated. No obstructive nephropathy. Only concerning for anasarca. Barnes catheterization. Monitor BMP daily. Appreciate urine lites, urine creatinine, urine eosinophils, urinalysis. Fena- 9.6 consistent with postrenal/obstructive. Will continue to monitor. Discussed with family that patient's persistent renal dysfunction specially with resolution of symptoms of CHF, patient otherwise clinically improving could be in setting of low EF versus new baseline for patient. We discussed if renal functions do not improve on decreasing diuresis in next 24 hours will plan to consult nephrology. Will plan for limited echocardiogram to reassess EF. No electrolyte abnormalities. (3) Diabetes mellitus, type II: A1c 6.9. Patient having episode of hypoglycemia earlier today morning. Decrease Lantus to 5 units daily, change insulin sliding scale to low-dose protocol with meals. Hold off on at bedtime. Hypoglycemia protocol. Carb consistent diet. 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 Unknown etiology. Could be in setting of hypoxia versus polypharmacy given worsening renal functions. Appreciate vitamin B12, ABG. Continue with decreased dose of sertraline at 50 cc/h, home dose of gabapentin 200 mg nightly, decreased dose of of Requip 0.5 3 times daily. It seems patient takes 6 mg twice daily at home. Frequent reorientation. Continue oxygen supplementation keeping saturation 90%. (5) Ischemic cardiomyopathy: ICD in place. No active chest pain. Troponin slightly elevated most likely in setting of renal dysfunction though troponin cycled nonsignificant (6) ASHD (arteriosclerotic heart disease): Continuing home dose of aspirin, statin. Appreciate A1c, lipid panel. (7) ICD (implantable cardioverter-defibrillator) in place: Plan CODE STATUS: Discussed in detail with the patient. Daughter Benigno will be the healthcare proxy. Patient does not want any kind of resuscitation or CPR. DNR/DNI. Carb consistent diet. Heparin 5000 every 12 hourly for DVT prophylaxis Protonix OPD prophylaxis Plan for the day: Out of bed to chair. Oxygen weaned off. Continue to hold off on any further IV diuresis for now. Congestive heart failure seems to have resolved. Renal function slightly improving though still has ZEYNEP on CKD. Cannot rule out being close to his new baseline of renal functions now. Monitor BMP daily while holding off on diuresis. Overall around 8 L negative. Electrolytes stable. Blood sugar early in the morning elevated now. Change Lantus to 5 units twice daily. Continue with sliding scale low-dose protocol prior to meals. Holding off on bedtime dose for now. Blood pressure is elevated today. Goal blood pressure less than 140/90 mmHg. Add amlodipine 5 mg oral daily for now. Attestations 2 Medical Necessity Statement*: Requires further hospitalization for management of ZEYNEP on CKD in a patient who was originally admitted for congestive heart failure Diagnoses CHF exacerbation I50.9 Acute kidney injury superimposed on CKD N17.9; N18.9 Type 2 diabetes mellitus with hyperglycemia, without long-term current use of insulin E11.65 Diabetes mellitus mcc insulin use: without mcc use Diabetes mellitus complication status: with hyperglycemia Encephalopathy G93.40 Ischemic cardiomyopathy I25.5 ASHD (arteriosclerotic heart disease) I25.10 ICD (implantable cardioverter-defibrillator) in place Z95.810
[2023-03-27 17:23] LABS: Glucose Point of Care 265 mg/dL (70-110)
[2023-03-27] MEDS: gabapentin 100 mg Capsule 200 MG PO (20:27)
[2023-03-27] MEDS: morphine 4 mg/mL SDV 1 mL 2 MG IVP (20:29)
[2023-03-27 20:39] LABS: Glucose Point of Care 161 mg/dL (70-110)
[2023-03-28] VITALS (14 sets, daily range): BP systolic 170–195; BP diastolic 72–91; PULSE 75–86; RESP 17–26; TEMP 36.4–37.2; O2SAT 92–98
[2023-03-28] MEDS: heparin 5,000 unit/mL INJ 1 mL 5000 UNIT SUBCUT ×2 (04:57→17:09)
[2023-03-28 06:39] LABS: Glucose Point of Care 83 mg/dL (70-110)
[2023-03-28] MEDS: aspirin 81 mg EC Tablet PO (08:32)
[2023-03-28] MEDS: ropinirole 0.25 mg Tablet 0.5 MG PO ×3 (08:32→21:23)
[2023-03-28] MEDS: gemfibrozil 600 mg Tablet PO ×2 (08:32→17:09)
[2023-03-28] MEDS: sertraline 100 mg Tablet 50 MG PO (08:32)
[2023-03-28] MEDS: amlodipine 5 mg Tablet PO (08:32)
[2023-03-28] MEDS: pantoprazole DR 40 mg Tablet PO (08:32)
[2023-03-28] MEDS: insulin glargine 100 units/1 mL 5 UNIT SUBCUT ×2 (08:33→17:10)
[2023-03-28] MEDS: budesonide 0.5 mg/2 mL Neb INHALATION ×2 (08:55→21:06)
[2023-03-28] MEDS: ipratropium-albuterol 3 mL Neb INHALATION ×3 (08:55→21:06)
[2023-03-28 11:49] LABS: Glucose Point of Care 149 mg/dL (70-110)
--- NOTE | 2023-03-28 11:55 | PC.SOCIAL ---
IMM updated Updated pt on IMM. No questions voiced. Provided pt a copy. Initialed, dated, & timed copy in chart.
[2023-03-28] MEDS: insulin lispro 100 unit/1 mL SUBCUT ×2 (12:02→17:09)
--- NOTE | 2023-03-28 15:21 | P.PN_ITS ---
Subjective 2 Subjective: Seen this morning. No acute events overnight. Patient is lying for net negative. Creatinine 4.2 as of yesterday. No labs available today. Says he will be going home alone as he lives alone. Vitals/I&O/Wt Last Vital Signs Temp 97.8 F 03/28/23 11:53 Pulse 78 03/28/23 14:00 Resp 26 H 03/28/23 11:53 BP 183/84 03/28/23 11:53 Pulse Ox 94 03/28/23 11:53 O2 Del Method Nasal Cannula 03/28/23 11:53 O2 Flow Rate 2 03/28/23 11:53 03/28/23 03/28/23 03/28/23 06:59 14:59 22:59 Intake Total 500 / 1460 720 / 720 Output Total 550 / 2725 500 / 500 Balance -50 / -1265 220 / 220 Weight last 48 hrs Weight 67.132 kg Weight 73.482 kg Weight 68.039 kg Weight 74.616 kg Weight 74.616 kg Physical Exam 2 Narrative: General: No acute distress, AO x3, chronically sick appearing on nasal cannula Chest: Bilateral bronchial breath sounds all over lung dyer, clear to auscultation bilaterally with very minimal crackles at bases. CVS: S1-S2 regular, regular rate soft pansystolic murmur at apex, Abdomen: Soft, nontender, bowel sounds present Neuro: No focal deficits, no facial deformity, AO x3, Extremity: Mild erythema present on the left upper arm on the medial aspect near the elbow, no erythema or joint swelling. No tenderness of the elbow joint Urinary Catheter Management: Coude: Cath Placed During This Visit: yes Reason for Continuing Indwelling Catheter: Accurate Measurement of Urinary Output in Critically Ill Patients Urinary Catheter Date of Insertion: 03/24/23 Urinary Catheter Time of Insertion: 17:40 Data 03/27/23 03:42 03/27/23 03:42 A&P Assessment and plan (1) CHF exacerbation: Last known EF of 40 to 45% with grade 1 diastolic dysfunction, global LV hypokinesia in 2021. Resolving. Patient overall around 6.5 L negative Fluid restriction up to 1500 cc. Barnes catheterization. Daily weights. And strict input of charting. Patient already received IV Lasix 80 mg in the morning today. Will hold off on any further diuresis for today. Renal function have continued to remain poor. Consult nephrology today. Out of bed to chair. PT evaluation. (2) Acute kidney injury superimposed on CKD: Baseline creatinine 1.8-2.4. Currently elevated. Medical reconciliation done for nephrotoxic drugs. Hold off on Entresto. CT abdomen pelvis appreciated. No obstructive nephropathy. Only concerning for anasarca. Banres catheterization. Monitor BMP daily. Appreciate urine lites, urine creatinine, urine eosinophils, urinalysis. Fena- 9.6 consistent with postrenal/obstructive. Will continue to monitor. Discussed with family that patient's persistent renal dysfunction specially with resolution of symptoms of CHF, patient otherwise clinically improving could be in setting of low EF versus new baseline for patient. We discussed if renal functions do not improve on decreasing diuresis in next 24 hours will plan to consult nephrology. No electrolyte abnormalities. Repeat echocardiogram shows EF 55%, grade 1 diastolic dysfunction. No wall motion abnormalities. (3) Diabetes mellitus, type II: A1c 6.9. Patient having episode of hypoglycemia earlier today morning. Decrease Lantus to 5 units daily, change insulin sliding scale to low-dose protocol with meals. Hold off on at bedtime. Hypoglycemia protocol. Carb consistent diet. Qualifiers: Diabetes mellitus intermediate frame tender insulin use: without long-term use Diabetes mellitus complication status: with hyperglycemia Qualified Code(s): E11.65 - Type 2 diabetes mellitus with hyperglycemia (4) Encephalopathy: Currently resolved. Unknown etiology. Could be in setting of hypoxia versus polypharmacy given worsening renal functions. Appreciate vitamin B12, ABG. Continue with decreased dose of sertraline at 50 cc/h, home dose of gabapentin 200 mg nightly, decreased dose of of Requip 0.5 3 times daily. It seems patient takes 6 mg twice daily at home. Frequent reorientation. Continue oxygen supplementation keeping saturation 90%. (5) Ischemic cardiomyopathy: ICD in place. No active chest pain. Troponin slightly elevated most likely in setting of renal dysfunction though troponin cycled nonsignificant (6) ASHD (arteriosclerotic heart disease): Continuing home dose of aspirin, statin. Appreciate A1c, lipid panel. (7) ICD (implantable cardioverter-defibrillator) in place: Plan CODE STATUS: Discussed in detail with the patient. Daughter Benigno will be the healthcare proxy. Patient does not want any kind of resuscitation or CPR. DNR/DNI. Carb consistent diet. Heparin 5000 every 12 hourly for DVT prophylaxis Protonix OPD prophylaxis Plan for the day: Out of bed to chair. Oxygen weaned off. Continue to hold off on any further IV diuresis for now. Congestive heart failure seems to have resolved. Renal function slightly improving though still has ZEYNEP on CKD. Cannot rule out being close to his new baseline of renal functions now. Monitor BMP daily while holding off on diuresis. Overall around 9 L negative. Electrolytes stable. Consult nephrology. Blood sugar early in the morning elevated now. Change Lantus to 5 units twice daily. Continue with sliding scale low-dose protocol prior to meals. Holding off on bedtime dose for now. Blood pressure is elevated today. Goal blood pressure less than 140/90 mmHg. Amlodipine 10 mg daily. Attestations 2 Medical Necessity Statement*: Requires further hospitalization for management of ZEYNEP on CKD in a patient who was originally admitted for congestive heart failure Diagnoses CHF exacerbation I50.9 Acute kidney injury superimposed on CKD N17.9; N18.9 Type 2 diabetes mellitus with hyperglycemia, without long-term current use of insulin E11.65 Diabetes mellitus long-term insulin use: without long-term use Diabetes mellitus complication status: with hyperglycemia Encephalopathy G93.40 Ischemic cardiomyopathy I25.5 ASHD (arteriosclerotic heart disease) I25.10 ICD (implantable cardioverter-defibrillator) in place Z95.810
[2023-03-28 17:02] LABS: Glucose Point of Care 211 mg/dL (70-110)
[2023-03-28 20:54] LABS: Glucose Point of Care 179 mg/dL (70-110)
[2023-03-28] MEDS: gabapentin 100 mg Capsule 200 MG PO (21:23)
[2023-03-28] MEDS: morphine 4 mg/mL SDV 1 mL 2 MG IVP (21:24)
[2023-03-29] VITALS (14 sets, daily range): BP systolic 157–190; BP diastolic 61–93; PULSE 60–83; RESP 14–24; TEMP 36.5–36.9; O2SAT 87–98
[2023-03-29] MEDS: heparin 5,000 unit/mL INJ 1 mL 5000 UNIT SUBCUT ×2 (04:01→18:03)
[2023-03-29 05:22] LABS: Basophils # 0.1 10^3/uL (0.0-0.1); Basophils % 1.2 %; Eosinophils # 0.3 10^3/uL (0.0-0.8); Eosinophils % 5.9 %; Hematocrit 29.4 % (37-53); Lymphocytes # 1.3 10^3/uL (0.8-4.8); Mean Corpuscular Hemoglobin 30.5 pg (27-33); Mean Corpuscular Volume 98.7 fl (82-101); Mean Platelet Volume 11.8 fL (7.4-10.4); Monocytes # 0.4 10^3/uL (0.2-0.9); Monocytes % 7.7 %; Neutrophils # 3.05 10^3/uL (1.8-7.7); Neutrophils % 60.2 %; Nucleated Red Blood Cells % 0 %; Platelet Count 142 10^3/cmm (157-399); Red Blood Count 2.98 10^6/uL (3.85-5.65); Red Cell Distribution Width 13.6 % (12.1-15.1); White Blood Count 5.07 10^3/uL (3.29-11.43)
[2023-03-29 05:53] LABS: Anion Gap 17.6 (5-19); Blood Urea Nitrogen 71 mg/dL (8-23); Calcium 8.7 mg/dL (8.5-10.5); Carbon Dioxide 24 mmol/L (22-29); Chloride 102 mmol/L (98-107); Glucose 97 mg/dL (65-115); Magnesium 1.6 mg/dL (1.7-2.3); Osmolality Calculated 307 mOsm/kg (285-295); Potassium 5.6 mmol/L (3.5-5.1); Sodium 138 mmol/L (136-145)
[2023-03-29 06:15] LABS: Glucose Point of Care 93 mg/dL (70-110)
[2023-03-29] MEDS: aspirin 81 mg EC Tablet PO (08:39)
[2023-03-29] MEDS: ropinirole 0.25 mg Tablet 0.5 MG PO ×3 (08:39→20:13)
[2023-03-29] MEDS: sertraline 100 mg Tablet 50 MG PO (08:39)
[2023-03-29] MEDS: pantoprazole DR 40 mg Tablet PO (08:40)
[2023-03-29] MEDS: amlodipine 10 mg Tablet PO (08:40)
[2023-03-29] MEDS: gemfibrozil 600 mg Tablet PO ×2 (08:40→18:03)
[2023-03-29] MEDS: insulin glargine 100 units/1 mL 5 UNIT SUBCUT ×2 (08:41→18:04)
[2023-03-29] MEDS: ipratropium-albuterol 3 mL Neb INHALATION ×2 (08:44→14:59)
[2023-03-29] MEDS: budesonide 0.5 mg/2 mL Neb INHALATION (08:44)
--- NOTE | 2023-03-29 09:57 | PC.NURSE ---
Orders entered for nayak removal and home O2 evaluation. Orders entered.
[2023-03-29 11:08] LABS: Glucose Point of Care 172 mg/dL (70-110)
[2023-03-29] MEDS: FUROsemide 10 mg/mL SDV 2mL 20 MG IVP (11:30)
[2023-03-29] MEDS: albumin 25 G/100 ML BAG 60 G IV ×2 (11:31→20:13)
[2023-03-29] MEDS: insulin lispro 100 unit/1 mL SUBCUT ×2 (12:26→18:04)
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
--- NOTE | 2023-03-29 14:17 | P.PN_ITS ---
Subjective 2 Subjective: Potassium 5.6 this morning, creatinine 4.1, magnesium 1.6. Patient states he is doing well today and is wondering when he can go home. Vitals/I&O/Wt Last Vital Signs Temp 97.8 F 03/29/23 11:26 Pulse 78 03/29/23 11:26 Resp 20 H 03/29/23 11:26 BP 164/70 03/29/23 11:26 Pulse Ox 95 03/29/23 11:30 O2 Del Method Nasal Cannula 03/29/23 11:26 O2 Flow Rate 3 03/29/23 11:30 03/28/23 03/29/23 03/29/23 22:59 06:59 14:59 Intake Total 420 / 1140 810 / 1950 820 / 820 Output Total 550 / 1050 900 / 1950 Balance -130 / 90 -90 / 0 820 / 820 Weight last 48 hrs Weight 70.307 kg Weight 74.298 kg Weight 67.132 kg Weight 73.482 kg Physical Exam 2 Narrative: General: No acute distress, AO x3, chronically sick appearing on nasal cannula Chest: Bilateral bronchial breath sounds all over lung dyer, clear to auscultation bilaterally CVS: S1-S2 regular, regular rate soft pansystolic murmur at apex, Abdomen: Soft, nontender, bowel sounds present Neuro: No focal deficits, no facial deformity, AO x3, Extremity: Mild erythema present on the left upper arm on the medial aspect near the elbow, no erythema or joint swelling. No tenderness of the elbow joint Urinary Catheter Management: Coude: Cath Placed During This Visit: yes Reason for Continuing Indwelling Catheter: Acute Urinary Retention or Obstruction Urinary Catheter Date of Insertion: 03/24/23 Urinary Catheter Time of Insertion: 17:40 Data 03/29/23 04:38 03/29/23 04:38 A&P Assessment and plan (1) CHF exacerbation: Last known EF of 40 to 45% with grade 1 diastolic dysfunction, global LV hypokinesia in 2021. Resolving. Patient overall around 6.5 L negative Fluid restriction up to 1500 cc. Barnes catheterization. Daily weights. And strict input of charting. Restart Lasix 40 oral daily. Renal function have continued to remain poor. Consult nephrology today. Out of bed to chair. PT evaluation. (2) Acute kidney injury superimposed on CKD: Baseline creatinine 1.8-2.4. Currently elevated. Medical reconciliation done for nephrotoxic drugs. Hold off on Entresto. CT abdomen pelvis appreciated. No obstructive nephropathy. Only concerning for anasarca. Barnes catheterization. Monitor BMP daily. Appreciate urine lites, urine creatinine, urine eosinophils, urinalysis. Fena- 9.6 consistent with postrenal/obstructive. Will continue to monitor. Discussed with family that patient's persistent renal dysfunction specially with resolution of symptoms of CHF, patient otherwise clinically improving could be in setting of low EF versus new baseline for patient. We discussed if renal functions do not improve on decreasing diuresis in next 24 hours will plan to consult nephrology. No electrolyte abnormalities. Repeat echocardiogram shows EF 55%, grade 1 diastolic dysfunction. No wall motion abnormalities. (3) Diabetes mellitus, type II: A1c 6.9. Patient having episode of hypoglycemia earlier today morning. Decrease Lantus to 5 units daily, change insulin sliding scale to low-dose protocol with meals. Hold off on at bedtime. Hypoglycemia protocol. Carb consistent diet. Qualifiers: Diabetes mellitus machine long goods helper insulin use: without machine long goods helper use Diabetes mellitus complication status: with hyperglycemia Qualified Code(s): E11.65 - Type 2 diabetes mellitus with hyperglycemia (4) Encephalopathy: Currently resolved. Unknown etiology. Could be in setting of hypoxia versus polypharmacy given worsening renal functions. Appreciate vitamin B12, ABG. Continue with decreased dose of sertraline at 50 cc/h, home dose of gabapentin 200 mg nightly, decreased dose of of Requip 0.5 3 times daily. It seems patient takes 6 mg twice daily at home. Frequent reorientation. Continue oxygen supplementation keeping saturation 90%. (5) Ischemic cardiomyopathy: ICD in place. No active chest pain. Troponin slightly elevated most likely in setting of renal dysfunction though troponin cycled nonsignificant (6) ASHD (arteriosclerotic heart disease): Continuing home dose of aspirin, statin. Appreciate A1c, lipid panel. (7) ICD (implantable cardioverter-defibrillator) in place: Plan CODE STATUS: Discussed in detail with the patient. Daughter Benigno will be the healthcare proxy. Patient does not want any kind of resuscitation or CPR. DNR/DNI. Carb consistent diet. Heparin 5000 every 12 hourly for DVT prophylaxis Protonix OPD prophylaxis Plan for the day: Out of bed to chair. Oxygen weaned off. Continue Lasix 40 IV daily. Congestive heart failure seems to have resolved. Renal function slightly improving though still has ZEYNEP on CKD. Cannot rule out being close to his new baseline of renal functions now. Monitor BMP daily while holding off on diuresis. Overall around 9 L negative. Electrolytes stable. Consult nephrology. Blood sugar early in the morning elevated now. Change Lantus to 5 units twice daily. Continue with sliding scale low-dose protocol prior to meals. Holding off on bedtime dose for now. Blood pressure is elevated today. Goal blood pressure less than 140/90 mmHg. Amlodipine 10 mg daily. Consult nephrology. Tx hyperK with insulin,dextrose,kayexalate,calcium gluc, repeat BMP at 4 pm albumin plus lasix today talked with nephro potential dc in am Attestations 2 Medical Necessity Statement*: Requires further hospitalization for management of ZEYNEP on CKD in a patient who was originally admitted for congestive heart failure Diagnoses CHF exacerbation I50.9 Acute kidney injury superimposed on CKD N17.9; N18.9 Type 2 diabetes mellitus with hyperglycemia, without long-term current use of insulin E11.65 Diabetes mellitus machine long goods helper insulin use: without usp use Diabetes mellitus complication status: with hyperglycemia Encephalopathy G93.40 Ischemic cardiomyopathy I25.5 ASHD (arteriosclerotic heart disease) I25.10 ICD (implantable cardioverter-defibrillator) in place Z95.810
[2023-03-29] MEDS: calcium gluconate 0.9% NaCL 1 GM/50 ML PREMIX IV (15:35)
[2023-03-29] MEDS: sodium polystyrene sulfonate 15 gm/60 mL Btl PO (15:35)
[2023-03-29] MEDS: insulin regular-human 5 UNIT in SYRINGE 1 EACH 1 UNIT IVP (15:36)
[2023-03-29 16:20] LABS: Glucose Point of Care 194 mg/dL (70-110)
[2023-03-29 17:35] LABS: Anion Gap 19.4 (5-19); Blood Urea Nitrogen 70 mg/dL (8-23); Calcium 9.6 mg/dL (8.5-10.5); Carbon Dioxide 24 mmol/L (22-29); Chloride 101 mmol/L (98-107); Glucose 98 mg/dL (65-115); Osmolality Calculated 308 mOsm/kg (285-295); Potassium 5.4 mmol/L (3.5-5.1); Sodium 139 mmol/L (136-145)
[2023-03-29] MEDS: gabapentin 100 mg Capsule 200 MG PO (20:13)
[2023-03-29] MEDS: morphine 4 mg/mL SDV 1 mL 2 MG IVP (20:13)
[2023-03-29 21:21] LABS: Glucose Point of Care 127 mg/dL (70-110)
[2023-03-30] VITALS (9 sets, daily range): BP systolic 166–186; BP diastolic 76–84; PULSE 65–80; RESP 18–25; TEMP 36.6–36.9; O2SAT 92–100; BMI 25.0
[2023-03-30 00:25] LABS: Glucose Point of Care 125 mg/dL (70-110)
--- NOTE | 2023-03-30 01:23 | PC.NURSE ---
Patient wanting to sleep. Informed Dr Hernández and placed order for Trazodone 25mg PO once. Went to administered and patient reports not feeling well and is afraid to take anything right now due to how he feels. Patient does have fine expiratory wheezes but does not sound fluid filled. Patient's SpO2 is 94-97% on 3L NC. Patient up to chair as he feels he cannot lie flat at present. VS as documented. Will continue to monitor.
[2023-03-30] MEDS: albumin 25 G/100 ML BAG 60 G IV ×2 (04:07→12:47)
[2023-03-30] MEDS: heparin 5,000 unit/mL INJ 1 mL 5000 UNIT SUBCUT (04:07)
[2023-03-30 04:54] LABS: Basophils # 0.1 10^3/uL (0.0-0.1); Basophils % 1.3 %; Eosinophils # 0.3 10^3/uL (0.0-0.8); Eosinophils % 4.9 %; Hematocrit 28.2 % (37-53); Lymphocytes # 1.1 10^3/uL (0.8-4.8); Lymphocytes % 20.1 %; Mean Corpuscular HGB Conc 30.1 g/dL (30-55); Mean Corpuscular Hemoglobin 30.5 pg (27-33); Mean Corpuscular Volume 101.1 fl (82-101); Mean Platelet Volume 12.3 fL (7.4-10.4); Monocytes # 0.5 10^3/uL (0.2-0.9); Monocytes % 9.7 %; Neutrophils # 3.48 10^3/uL (1.8-7.7); Neutrophils % 63.8 %; Nucleated Red Blood Cells % 0 %; Platelet Count 146 10^3/cmm (157-399); Red Blood Count 2.79 10^6/uL (3.85-5.65); Red Cell Distribution Width 13.6 % (12.1-15.1); White Blood Count 5.46 10^3/uL (3.29-11.43)
[2023-03-30 05:16] LABS: Anion Gap 19.7 (5-19); Blood Urea Nitrogen 69 mg/dL (8-23); Calcium 8.9 mg/dL (8.5-10.5); Carbon Dioxide 22 mmol/L (22-29); Chloride 105 mmol/L (98-107); Glucose 114 mg/dL (65-115); Osmolality Calculated 313 mOsm/kg (285-295); Phosphorus 5.5 mg/dL (2.5-4.5); Potassium 5.7 mmol/L (3.5-5.1); Sodium 141 mmol/L (136-145)
[2023-03-30 06:26] LABS: Glucose Point of Care 115 mg/dL (70-110)
[2023-03-30] MEDS: FUROsemide 10 mg/mL SDV 10mL 80 MG IVP (06:54)
--- NOTE | 2023-03-30 06:58 | PC.NURSE ---
Patient refusing to take kayexolate this morning. He said he sat on the commode all day yesterday. Instructed patient on elevated potassium and importance of getting it lowered. Did agree to taking lasix only at this time. Informed Dr Watson.
[2023-03-30] MEDS: ropinirole 0.25 mg Tablet 0.5 MG PO ×2 (08:25→16:03)
[2023-03-30] MEDS: aspirin 81 mg EC Tablet PO (08:25)
[2023-03-30] MEDS: FUROsemide 40 mg Tablet PO (08:26)
[2023-03-30] MEDS: sertraline 100 mg Tablet 50 MG PO (08:26)
[2023-03-30] MEDS: insulin glargine 100 units/1 mL 5 UNIT SUBCUT (08:26)
[2023-03-30] MEDS: pantoprazole DR 40 mg Tablet PO (08:26)
[2023-03-30] MEDS: amlodipine 10 mg Tablet PO (08:26)
[2023-03-30] MEDS: gemfibrozil 600 mg Tablet PO (08:26)
[2023-03-30] MEDS: ipratropium-albuterol 3 mL Neb INHALATION (08:49)
[2023-03-30] MEDS: budesonide 0.5 mg/2 mL Neb INHALATION (08:49)
[2023-03-30] MEDS: insulin regular-human 10 UNIT in SYRINGE 1 EACH IVP (11:05)
[2023-03-30] MEDS: sodium polystyrene sulfonate 15 gm/60 mL Btl 30 GM PO (11:13)
--- NOTE | 2023-03-30 11:14 | PC.SOCIAL ---
IMM Updated Updated pt on IMM. No questions voiced. Provided pt a copy. Initialed, dated, & timed copy in chart.
--- NOTE | 2023-03-30 11:44 | PM.PN ---
Subjective Subjective: Seen this morning. Patient refusing to take Kayexalate. He states that he had a lot of diarrhea because of it. Potassium is 5.7 this morning. I discussed with him possibility of dialysis as well in the future which he says he is agreeable to for now. He asked me what dialysis was done I tried to explain to him in layman terms. He states in case he is incapacitated he would like his daughter to make his decisions. He says for now however he does not want to involve his family and does not want us calling them at all. He would like to be DNR/DNI which is consistent with was on the chart at this time. I did encourage him to sign a DPOA and her daughter's name since there is nothing on file at this time. He states he is interested in doing that and I will have clinical social work aide talk to him. Vitals/I&O/Wt Last Vital Signs Temp 97.8 F 03/30/23 07:27 Pulse 70 03/30/23 08:51 Resp 20 H 03/30/23 08:51 BP 186/76 03/30/23 07:27 Pulse Ox 97 03/30/23 08:51 O2 Del Method Nasal Cannula 03/30/23 08:51 O2 Flow Rate 2 03/30/23 08:51 03/29/23 03/30/23 03/30/23 22:59 06:59 14:59 Intake Total 890.05 / 1710.05 200 / 1910.05 Output Total 300 / 300 590 / 890 Balance 590.05 / 1410.05 -390 / 1020.05 Weight last 48 hrs Weight 70.398 kg Weight 70.398 kg Weight 70.307 kg Weight 74.298 kg Physical Exam Narrative: General: No acute distress, AO x3, chronically sick appearing on nasal cannula Chest: Bilateral bronchial breath sounds all over lung dyer, clear to auscultation bilaterally CVS: S1-S2 regular, regular rate soft pansystolic murmur at apex, Abdomen: Soft, nontender, bowel sounds present Neuro: No focal deficits, no facial deformity, AO x3, Extremity: Mild erythema present on the left upper arm on the medial aspect near the elbow, no erythema or joint swelling. No tenderness of the elbow joint Urinary Catheter Management: Coude: Cath Placed During This Visit: yes Reason for Continuing Indwelling Catheter: Acute Urinary Retention or Obstruction Urinary Catheter Date of Insertion: 03/24/23 Urinary Catheter Time of Insertion: 17:40 Data 03/30/23 04:05 03/30/23 04:05 A&P Assessment and plan (1) CHF exacerbation: Last known EF of 40 to 45% with grade 1 diastolic dysfunction, global LV hypokinesia in 2021. Resolving. Patient overall around 6.5 L negative Fluid restriction up to 1500 cc. Barnes catheterization. Daily weights. And strict input of charting. Renal function have continued to remain poor. Consult nephrology. Nephrology on board. Out of bed to chair. PT evaluation. (2) Acute kidney injury superimposed on CKD: Baseline creatinine 1.8-2.4. Currently elevated. Medical reconciliation done for nephrotoxic drugs. Hold off on Entresto. CT abdomen pelvis appreciated. No obstructive nephropathy. Only concerning for anasarca. Barnes catheterization. Monitor BMP daily. Appreciate urine lites, urine creatinine, urine eosinophils, urinalysis. Fena- 9.6 consistent with postrenal/obstructive. Will continue to monitor. Discussed with family that patient's persistent renal dysfunction specially with resolution of symptoms of CHF, patient otherwise clinically improving could be in setting of low EF versus new baseline for patient. We discussed if renal functions do not improve on decreasing diuresis in next 24 hours will plan to consult nephrology. No electrolyte abnormalities. Repeat echocardiogram shows EF 55%, grade 1 diastolic dysfunction. No wall motion abnormalities. (3) Diabetes mellitus, type II: A1c 6.9. Patient having episode of hypoglycemia earlier today morning. Decrease Lantus to 5 units daily, change insulin sliding scale to low-dose protocol with meals. Hold off on at bedtime. Hypoglycemia protocol. Carb consistent diet. Qualifiers: Diabetes mellitus press tender long goods insulin use: without mcc use Diabetes mellitus complication status: with hyperglycemia Qualified Code(s): E11.65 - Type 2 diabetes mellitus with hyperglycemia (4) Encephalopathy: Currently resolved. Unknown etiology. Could be in setting of hypoxia versus polypharmacy given worsening renal functions. Appreciate vitamin B12, ABG. Continue with decreased dose of sertraline at 50 cc/h, home dose of gabapentin 200 mg nightly, decreased dose of of Requip 0.5 3 times daily. It seems patient takes 6 mg twice daily at home. Frequent reorientation. Continue oxygen supplementation keeping saturation 90%. (5) Ischemic cardiomyopathy: ICD in place. No active chest pain. Troponin slightly elevated most likely in setting of renal dysfunction though troponin cycled nonsignificant (6) ASHD (arteriosclerotic heart disease): Continuing home dose of aspirin, statin. Appreciate A1c, lipid panel. (7) ICD (implantable cardioverter-defibrillator) in place: Plan CODE STATUS: Discussed in detail with the patient. Daughter Benigno will be the healthcare proxy. Patient does not want any kind of resuscitation or CPR. DNR/DNI. Carb consistent diet. Heparin 5000 every 12 hourly for DVT prophylaxis Protonix OPD prophylaxis Plan for the day: Out of bed to chair. Oxygen weaned off. Lasix 40 daily orally. Congestive heart failure seems to have resolved. Renal function slightly improving though still has ZEYNEP on CKD. Creatinine worsening at this time. Patient persistently hypokalemic. Electrolytes stable. Consult nephrology. Blood sugar early in the morning elevated now. Change Lantus to 5 units twice daily. Continue with sliding scale low-dose protocol prior to meals. Holding off on bedtime dose for now. Blood pressure is elevated today. Goal blood pressure less than 140/90 mmHg. Amlodipine 10 mg daily. Consult nephrology. Tx hyperK with insulin,dextrose,kayexalate,calcium gluc, repeat BMP at 4 pm Continue above management. talked with nephro Phosphorus also elevated. Will discuss with nephrology regarding further management for renal. Patient is persistently hypokalemic and will need potassium treatment today for lowering and will require frequent BMP. He is at high risk of cardiac arrhythmia. Attestations Medical Necessity Statement*: Persistent hypokalemia and worsening renal function. Diagnoses CHF exacerbation I50.9 Acute kidney injury superimposed on CKD N17.9; N18.9 Type 2 diabetes mellitus with hyperglycemia, without long-term current use of insulin E11.65 Diabetes mellitus mcc insulin use: without mcc use Diabetes mellitus complication status: with hyperglycemia Encephalopathy G93.40 Ischemic cardiomyopathy I25.5 ASHD (arteriosclerotic heart disease) I25.10 ICD (implantable cardioverter-defibrillator) in place Z95.810
[2023-03-30 11:51] LABS: Glucose Point of Care 178 mg/dL (70-110)
[2023-03-30] MEDS: insulin lispro 100 unit/1 mL SUBCUT (12:47)
[2023-03-30 13:04] LABS: Anion Gap 18.7 (5-19); Blood Urea Nitrogen 75 mg/dL (8-23); Calcium 9.5 mg/dL (8.5-10.5); Carbon Dioxide 26 mmol/L (22-29); Chloride 102 mmol/L (98-107); Glucose 79 mg/dL (65-115); Osmolality Calculated 315 mOsm/kg (285-295); Potassium 4.7 mmol/L (3.5-5.1); Sodium 142 mmol/L (136-145)
--- NOTE | 2023-03-30 13:58 | PM.DCS ---
Discharge Providers Date of Admission: 03/24/23 17:19 Date of Discharge: March 30, 2023 Attending Provider at Admission: Nakul Benavides MD Attending Provider at Discharge: Nona Watson MD Primary Care Provider: Satish Borges Diagnoses at Discharge Discharge Diagnosis (1) CHF exacerbation: Status: Acute (2) Acute kidney injury superimposed on CKD: Status: Acute (3) Diabetes mellitus, type II: Status: Acute Qualifiers: Diabetes mellitus complication status: with hyperglycemia Diabetes mellitus [facility] insulin use: without manager intermediate use Qualified Code(s): E11.65 - Type 2 diabetes mellitus with hyperglycemia (4) Encephalopathy: Status: Resolved (5) Ischemic cardiomyopathy: Status: Acute Permanent problem details: The EKG from today revealed a sinus rhythm with a left bundle branch block pattern. Further interpretation is not possible. The AK interval is 144 ms with a QRS duration of 150 ms. (6) ASHD (arteriosclerotic heart disease): Status: Acute (7) ICD (implantable cardioverter-defibrillator) in place: Status: Acute Reason for Visit Reason for Visit: sob, hallucinations, swelling Hospital Course Hospital Course 72-year-old with history of CKD, CHF, presented to the hospital with shortness of breath. He was found to have an ZEYNEP on CKD with congestive heart failure along with polypharmacy. Entresto was discontinued. He was diuresed. CHF exacerbation resolved. Renal function remained poor and worsened. Nephrology was consulted. Patient also became persistently hyperkalemic and potassium was treated. It was decided to send patient home to follow-up with his mat packer outpatient. He was advised to be on a low potassium diet. We also reduced his Lantus to 5 units daily. Stopped Jardiance. Continue to oral Lasix 40 daily. Stopped Entresto. Patient has to follow-up with cardiology and nephrology as an outpatient. He will be discharged home in stable condition. Oxygen was set up for him at discharge. Physical Exam Urinary Catheter Management: Coude: Cath Placed During This Visit: yes Reason for Continuing Indwelling Catheter: Acute Urinary Retention or Obstruction Urinary Catheter Date of Insertion: 03/24/23 Urinary Catheter Time of Insertion: 17:40 Discharge Data Studies Completed and Pending Completed Studies During Hospitalization Category Date Time Status CT abdomen pelvis wo con [id number] Stat Cat Scan 03/24/23 15:12 Completed XR chest 1V portable [id number] Stat Exams 03/24/23 12:47 Completed CV. echo limited [id number] Routine Ultrasound 03/26/23 10:20 Completed Pending at discharge Category Date Time Status Basic Metabolic Panel AM LABS Lab 03/31/23 04:00 Ordered Magnesium AM LABS Lab 03/31/23 04:00 Ordered Phosphorus AM LABS Lab 03/31/23 04:00 Ordered Radiology Impressions Abdomen/Pelvis CT 03/24/23 15:12 IMPRESSION: 1. No evidence of hydronephrosis. 2. Prominent diffuse superficial soft tissue edema, possibly reflecting anasarca. 3. Trace left-sided pleural effusion. 4. Enlarged retrocrural node, nonspecific. Consider follow-up exam in 6-12 weeks to assess for resolution. Laboratory Results WBC 5.46 10^3/uL (3.29-11.43) 03/30/23 04:05 RBC 2.79 10^6/uL (3.85-5.65) L 03/30/23 04:05 Hgb 8.50 g/dL (11.27-16.99) L 03/30/23 04:05 Hct 28.2 % (37-53) L 03/30/23 04:05 MCV 101.1 fl (82-101) H 03/30/23 04:05 MCH 30.5 pg (27-33) 03/30/23 04:05 MCHC 30.1 g/dL (30-55) 03/30/23 04:05 RDW 13.6 % (12.1-15.1) 03/30/23 04:05 Plt Count 146 10^3/cmm (157-399) L 03/30/23 04:05 MPV 12.3 fL (7.4-10.4) H 03/30/23 04:05 Neut % (Auto) 63.8 % 03/30/23 04:05 Lymph % (Auto) 20.1 % 03/30/23 04:05 Hawkins % (Auto) 9.7 % 03/30/23 04:05 Eos % (Auto) 4.9 % 03/30/23 04:05 Baso % (Auto) 1.3 % 03/30/23 04:05 Neut # (Auto) 3.48 10^3/uL (1.8-7.7) 03/30/23 04:05 Lymph # (Auto) 1.1 10^3/uL (0.8-4.8) 03/30/23 04:05 Hawkins # (Auto) 0.5 10^3/uL (0.2-0.9) 03/30/23 04:05 Eos # (Auto) 0.3 10^3/uL (0.0-0.8) 03/30/23 04:05 Baso # (Auto) 0.1 10^3/uL (0.0-0.1) 03/30/23 04:05 Nucleated RBC % (auto) 0 % 03/30/23 04:05 Nucleated RBCs # 0.0 /100WBC 03/30/23 04:05 PT 17.10 SECONDS (12.1-14.9) H 03/24/23 14:46 INR 1.34 (0.8-1.2) H 03/24/23 14:46 D-Dimer 3.94 ug/mLFEU (0-0.59) H 03/24/23 14:46 Specimen Type Arterial 03/24/23 18:10 Sample Site Radial, left 03/24/23 18:10 ABG pH 7.27 (7.35-7.45) L 03/24/23 18:10 ABG pCO2 45.0 mmHg (35-45) 03/24/23 18:10 ABG pO2 78.9 mmHg (80.0-100.0) L 03/24/23 18:10 ABG PO2/FiO2 Ratio 0 03/24/23 18:10 ABG HCO3 20.7 mmol/L (22-26) L 03/24/23 18:10 ABG O2 Saturation 95.6 03/24/23 18:10 ABG Base Excess -6.0 mmol/L (-2.0-2.0) L 03/24/23 18:10 Ramón Test Pos 03/24/23 18:10 A-a O2 Gradient 8.3 mmHg (5-10) 03/24/23 18:10 Hematocrit 28.4 % (42-52) L 03/24/23 18:10 Hgb O2 Saturation 92.8 % (95-100) L 03/24/23 18:10 Carboxyhemoglobin 2.2 %THgb (0.4-20.1) 03/24/23 18:10 Methemoglobin 0.7 % (0.4-1.5) 03/24/23 18:10 Total Hemoglobin 9.3 g/dL (14-18) L 03/24/23 18:10 Sodium 139.0 mmol/L (131-143) 03/24/23 18:10 Potassium 5.1 mmol/L (3.5-5.0) H 03/24/23 18:10 Glucose 448.0 mg/dL (70-115) H 03/24/23 18:10 Ionized Calcium 1.1 mmol/L (1.1-1.4) 03/24/23 18:10 O2 Delivery Device Nc 03/24/23 18:10 O2 Liters/Min 2.0 % 03/24/23 18:10 FiO2 28.0 % 03/24/23 18:10 Putty Remover ID Gd 03/24/23 18:10 Sodium 142 mmol/L (136-145) 03/30/23 12:31 Potassium 4.7 mmol/L (3.5-5.1) 03/30/23 12:31 Chloride 102 mmol/L (98-107) 03/30/23 12:31 Carbon Dioxide 26 mmol/L (22-29) 03/30/23 12:31 Anion Gap 18.7 (5-19) 03/30/23 12:31 BUN 75 mg/dL (8-23) H 03/30/23 12:31 Creatinine 3.9 mg/dL (0.7-1.2) H 03/30/23 12:31 GFR Calculation Not Reportable 03/30/23 12:31 Glucose 79 mg/dL (65-115) 03/30/23 12:31 POC Glucose 178 mg/dL (70-110) H 03/30/23 11:46 Estimat Average Glucose 151 03/25/23 06:57 Hemoglobin A1c 6.9 % (4.0-6.0) H 03/25/23 06:57 Calculated Osmolality 315 mOsm/kg (285-295) H 03/30/23 12:31 Calcium 9.5 mg/dL (8.5-10.5) 03/30/23 12:31 Phosphorus 5.5 mg/dL (2.5-4.5) H 03/30/23 04:05 Magnesium 1.6 mg/dL (1.7-2.3) L 03/29/23 04:38 Iron 44 ug/dL (59-158) L 03/24/23 13:58 TIBC 342 mcg/dl 03/24/23 13:58 % Saturation 12.8 % (20-50) L 03/24/23 13:58 Unsat Iron Binding 298 ug/dL (112-347) 03/24/23 13:58 Total Bilirubin 0.2 mg/dL (0.15-1.2) 03/27/23 03:42 AST 16 U/L (0-40) 03/27/23 03:42 ALT 10 U/L (0-41) 03/27/23 03:42 Alkaline Phosphatase 68 U/L (40-130) 03/27/23 03:42 Troponin T Baseline 71 ng/L (0-15) H 03/24/23 17:05 Troponin T 120 Minute 66.89 ng/L (0-15) H 03/24/23 20:02 Delta Troponin T -4.11 ABS# (0-10) L 03/24/23 20:02 Troponin T Hi Sens 6Hr 68.42 ng/L (0-15) H 03/24/23 23:08 Troponin T Hi Sens 6Hr Delta -2.58 ng/L (0-12) L 03/24/23 23:08 NT-Pro-B Natriuret Pep 60468 pg/mL (0-125) H 03/24/23 13:58 Total Protein 5.6 g/dL (6.6-8.7) L 03/27/23 03:42 Albumin 2.9 g/dL (3.5-5.2) L 03/27/23 03:42 Globulin 2.7 g/dL (1.3-4.6) 03/27/23 03:42 Triglycerides 57 mg/dL (0-150) 03/25/23 06:57 Cholesterol 142 mg/dL (0-200) 03/25/23 06:57 LDL Cholesterol, Calc 78 mg/dL (50-129) 03/25/23 06:57 HDL Cholesterol 53 mg/dL (60-100) L 03/25/23 06:57 LDL/HDL Ratio 1.47 RATIO (0.00-3.22) 03/25/23 06:57 Cholesterol/HDL Ratio 2.68 mg/dL (1.0-5.00) 03/25/23 06:57 Vitamin B12 899 pg/mL (232-1245) 03/24/23 13:58 Folate 7.7 ng/mL (4.5-32.2) 03/25/23 06:57 Procalcitonin 0.12 ng/mL (0-0.5) 03/24/23 13:58 TSH 2.70 uIU/mL (0.27-4.20) 03/24/23 17:05 Urine Color Colorless (Yellow) 03/26/23 11:50 Urine Appearance Clear (CLEAR) 03/26/23 11:50 Urine pH 6.5 (5-7) 03/26/23 11:50 Ur Specific Bowden 1.005 (1.005-1.030) 03/26/23 11:50 Urine Protein 2+ (Negative) H 03/26/23 11:50 Urine Glucose (UA) 2+ (Normal) H 03/26/23 11:50 Urine Ketones Negative (Negative) 03/26/23 11:50 Urine Blood 2+ (Negative) H 03/26/23 11:50 Urine Nitrate Negative (Negative) 03/26/23 11:50 Urine Bilirubin Neg (Negative) 03/26/23 11:50 Urine Urobilinogen Norm mg/dL (Negative) 03/26/23 11:50 Ur Leukocyte Esterase Negative (Negative) 03/26/23 11:50 Urine RBC 5-10 /hpf (0-2) H 03/26/23 11:50 Urine WBC 5-10 /hpf (0-5) H 03/26/23 11:50 Ur Eosinophil Smear 0 (0-0) 03/26/23 11:50 Ur Squamous Epith Cells 0-4 /hpf (0-5) H 03/26/23 11:50 Amorphous Sediment Not Reportable 03/26/23 11:50 Urine Bacteria Trace /hpf (NONE) 03/26/23 11:50 Urine Eosinophils No eosinophils seen 03/26/23 11:50 Ur Random Sodium 128 mmol/L 03/26/23 11:50 Ur Random Potassium 12 mmol/L 03/26/23 11:50 Ur Random Chloride 117 mmol/L 03/26/23 11:50 Urine Creatinine 16 mg/dL (39-259) L 03/26/23 11:50 Vitals Last Vital Signs Temp 98 F 03/30/23 12:00 Pulse 69 03/30/23 12:00 Resp 20 H 03/30/23 12:00 BP 166/76 03/30/23 12:00 Pulse Ox 96 03/30/23 12:00 O2 Del Method Nasal Cannula 03/30/23 12:00 O2 Flow Rate 2 03/30/23 08:51 Discharge Plan Discharge Patient Disposition: Home Condition: Stable Prescriptions: New insulin glargine 100 unit/mL Solution 5 unit SUBCUT BEDTIME 30 Days Qty: 2.4 0RF amlodipine 10 mg Tablet 10 mg PO DAILY Qty: 30 0RF Continued cyclobenzaprine 10 mg tablet 10 mg PO DAILY PRN (Reason: Muscle Spasm) nebivolol [Bystolic] 5 mg tablet 5 mg PO DAILY Qty: 90 0RF Hold Instructions: Patient No Longer Taking gemfibrozil 600 mg Tablet 600 mg PO BID omeprazole 20 mg Tablet,Delayed Release (Dr/Ec) 20 mg PO DAILY aspirin 81 mg tablet,delayed release (DR/EC) 81 mg PO DAILY Incruse Ellipta 62.5 mcg/actuation blister with device 62.5 mcg INHALATION DAILY gabapentin 100 mg Capsule 200 mg PO BEDTIME Qty: 180 0RF furosemide 40 mg tablet 40 mg PO DAILY Rx Instructions: with two 80 mg tabs to equal 200 mg sertraline 100 mg tablet 100 mg PO DAILY ropinirole 4 mg tablet 6 mg PO BID diphenoxylate-atropine 2.5-0.025 mg tablet 1 tab PO Q6H PRN (Reason: Diarrhea) Held Entresto 97-103 mg tablet 1 tab PO BID Qty: 180 3RF Hold Instructions: see pcp Jardiance 10 mg tablet 10 mg PO DAILY Hold Instructions: see pcp Discontinued Lantus Solostar U-100 Insulin 100 unit/mL (3 mL) insulin pen 12 - 14 unit SUBCUT DAILY PRN (Reason: Hyperglycemia) nitroglycerin 0.4 mg tablet, sublingual 0.4 mg sublingual Q5M PRN (Reason: chest pain) 30 Days Qty: 30 3RF Rx Instructions: until response; do not exceed 3 doses per episode furosemide 80 mg tablet 160 mg PO DAILY Rx Instructions: with 40 mg tab daily to equal 200 mg Discharge Orders: Discharge Order (Routine); Ordered 03/30/23 Ordered By: Nona Watson Other Ambulatory Orders: DME: Oxygen (Order) Location: None Selected Ordered By: Nona Watson Basic Metabolic Panel (Routine) Timeframe: 3 Days Facility: [facility] - Location: Lab - Main Lab Ordered By: Nona Watson Referrals: Johan [Outside] Satish Borges [Primary Care Provider] - 04/05/23 1:20 pm Kat Walker FNP [Nurse Practitioner] - 04/28/23 2:30 pm Evonne Strickland MD [Referring] - 1 week (We have notified your physician's clinic of the need for a follow-up appointment to be scheduled. If you have not heard from them within the next 2 business days, please call them directly. ) Discharge Diet: As Directed, Cardiac and Diabetic Patient Instructions: Amlodipine (By mouth), Insulin Glargine (By injection), Heart Failure (DC), Potassium Content of Foods List (GEN), Hyperkalemia (GEN), CHF Stoplight, Opioid Safety Activity Restrictions/Additional Instructions: Low potassium diet Follow up Dr. Strickland within 7-10 days of discharge. Have repeat labs done before visit Follow up with cardiology. Check Blood sugar at home and skip lantus dose if BG < 105 fasting. Call PCP. Discharge Attestations Time Spent in Discharge Care*: greater than 30 min Quality Metrics Clinical Quality Measures [ No reported AMI, CVA or VTE this stay] Coding Level of Care Code Acute Code for Chg Fwd Diagnoses CHF exacerbation I50.9 Acute kidney injury superimposed on CKD N17.9; N18.9 Type 2 diabetes mellitus with hyperglycemia, without long-term current use of insulin E11.65 Diabetes mellitus complication status: with hyperglycemia Diabetes mellitus [facility] insulin use: without [facility] use Encephalopathy G93.40 Ischemic cardiomyopathy I25.5 ASHD (arteriosclerotic heart disease) I25.10 ICD (implantable cardioverter-defibrillator) in place Z95.810
--- NOTE | 2023-03-30 17:16 | PM.PN ---
Subjective Subjective: feels better Medications: Reviewed: Yes Vitals/I&O/Wt Last Vital Signs Temp 98 F 03/30/23 16:52 Pulse 69 03/30/23 16:52 Resp 20 H 03/30/23 16:52 BP 166/76 03/30/23 16:52 Pulse Ox 96 03/30/23 16:52 O2 Del Method Nasal Cannula 03/30/23 16:00 O2 Flow Rate 2 03/30/23 08:51 03/30/23 03/30/23 03/30/23 06:59 14:59 22:59 Intake Total 200 / 1910.05 100.1 / 100.1 Output Total 590 / 890 Balance -390 / 1020.05 100.1 / 100.1 Weight last 48 hrs Weight 70.398 kg Weight 70.398 kg Weight 70.307 kg Weight 74.298 kg Physical Exam Narrative: Patient is awake, alert no distress S1-S2 regular rate and rhythm per report No edema Urinary Catheter Management: Coude: Cath Placed During This Visit: yes Reason for Continuing Indwelling Catheter: Acute Urinary Retention or Obstruction Urinary Catheter Date of Insertion: 03/24/23 Urinary Catheter Time of Insertion: 17:40 Data 03/30/23 04:05 03/30/23 12:31 A&P Assessment and plan (1) Acute kidney injury superimposed on CKD: Plan 1. Acute on chronic kidney disease stage III: Baseline creatinine in the 2 range now has an ZEYNEP likely cardiorenal on presentation with creatinine 4.1 but with a creatinine peak of 4.8 post aggressive diuresis. Also has proteinuria likely from diabetic nephropathy -Agree with oral Lasix, add IV albumin -Creatinine down to 4.1, likely new baseline in the 3-4 range. -Patient's follows with Dr. Strickland from nephrology as outpatient, asked him to follow in 1 to 2 weeks. -2 g sodium restriction and 1500 mill fluid restriction 2. Hyperkalemia: Medical management, low potassium diet 3. CHF with low ejection fraction, diuresis as above 4. History of ischemic cardiomyopathy 5. Anemia: Gets HARJINDER injections as outpatient Patient evaluated using audiovisual cart. Time spent 40 minutes. Attestations Medical Necessity Statement*: per sadiq Coding Level of Care Code Acute Code for [facility] Fwd Diagnoses Acute kidney injury superimposed on CKD N17.9; N18.9
--- NOTE | 2023-03-30 17:43 | PC.NURSE ---
Discharge Note Patient discharged to [home] via [w/c to POV] accompanied by [daughter]. Discharge instructions reviewed with patient and/or uniforms sales representative. Mobile pharmacy medications and/or prescriptions provided. Belongings/home medications returned.
== END 2023-03-30 17:44 | disposition home or self-care (01) | DRG 291 ==
LOC: ER 15:09 → CSU 15:48
PROVIDERS: Admitting Provider Student in an Organized Health Care Education/Training Program; Emergency Provider Emergency Medicine; PCP Family Medicine; Visit Provider Internal Medicine
DX: I13.0 Hypertensive heart and chronic kidney disease with heart failure and stage 1 through stage 4 chronic kidney disease, or unspecified chronic kidney disease (principal); I50.33 Acute on chronic diastolic (congestive) heart failure; N17.9 Acute kidney failure, unspecified; G93.40 Encephalopathy, unspecified; E11.22 Type 2 diabetes mellitus with diabetic chronic kidney disease; E11.65 Type 2 diabetes mellitus with hyperglycemia; N18.30 Chronic kidney disease, stage 3 unspecified; Z79.4 Long term (current) use of insulin; R09.02 Hypoxemia; E87.5 Hyperkalemia; Z66 Do not resuscitate; E11.649 Type 2 diabetes mellitus with hypoglycemia without coma; D63.1 Anemia in chronic kidney disease; F17.210 Nicotine dependence, cigarettes, uncomplicated; I25.10 Atherosclerotic heart disease of native coronary artery without angina pectoris; Z95.1 Presence of aortocoronary bypass graft; G47.33 Obstructive sleep apnea (adult) (pediatric); G25.81 Restless legs syndrome; E78.5 Hyperlipidemia, unspecified; E11.42 Type 2 diabetes mellitus with diabetic polyneuropathy; I25.5 Ischemic cardiomyopathy; Z95.810 Presence of automatic (implantable) cardiac defibrillator; J44.9 Chronic obstructive pulmonary disease, unspecified
CPT/HCPCS: 36415; 36416; 36600; 51702; 71045; 74176; 80048; 80051; 80053; 80061; 81001; 81015; 82330; 82436; 82570; 82607; 82746; 82805; 82962; 83036; 83540; 83550; 83735; 83880; 84100; 84133; 84145; 84300; 84443; 84484; 85025; 85378; 85610; 85999; 86403; 87449; 93005; 93308; 94640; 94664; 94760; 96372; 96376; 97110; 97116; 97161; 97530; 99285; J0610; J1644; J1815; J1940; J2270; J3475; J7626; J7799; P9046; Q3014

== ENCOUNTER 2023-04-21 10:26 | Emergency (ER) | payer MEDICARE, SELFPAY ==
[2023-04-21 10:32] VITALS: BP 172/66; PULSE 69; RESP 18; TEMP 36.7; O2SAT 91; BMI 22.8
--- NOTE | 2023-04-21 10:43 | XR_ITS ---
WS: [id number] Portable AP upright chest, 04/21/2023 Clinical Data: chf Comparison: Portable chest, 03/24/2023 Findings: No nodules, masses or effusions are seen. The heart is normal. The pulmonary vascularity is not increased. No pneumonia or pneumothorax is seen. Midline sternotomy sutures are present. There i s a cardiac pacemaker generator overlying the left lateral chest with wires leading into the heart. T here is an anterior cervical disc fusion. Impression: Cardiac pacemaker.
--- NOTE | 2023-04-21 10:46 | ECG_ITS ---
[facility] Test Date: 2023-04-21 Pat Name: Christopher Romero Department: Room: Gender: Male Information Services Assistant: : 1950 Requested By: Adeel Wall Order Number: [id number] Reese MD: Kurtis Hahn M.D. Measurements Intervals [place] Rate: 63 P: 73 DE: 136 QRS: -75 QRSD: 133 T: 82 QT: 473 QTc: 486 Interpretive Statements ELECTRONIC VENTRICULAR PACEMAKER Compared to ECG 03/24/2023 18:17:02 No significant changes Electronically Signed On 04-21-2023 14:42:25 FLATWORK FINISHER HAND by Kurtis Hahn M.D. [email or web address]
[2023-04-21 11:07] LABS: Basophils # 0.1 10^3/uL (0.0-0.1); Basophils % 1.5 %; Eosinophils # 0.2 10^3/uL (0.0-0.8); Eosinophils % 3.5 %; Hematocrit 31.8 % (37-53); Lymphocytes # 1.4 10^3/uL (0.8-4.8); Lymphocytes % 22.9 %; Mean Corpuscular HGB Conc 31.8 g/dL (30-55); Mean Corpuscular Hemoglobin 30.9 pg (27-33); Mean Corpuscular Volume 97.2 fl (82-101); Mean Platelet Volume 10.8 fL (7.4-10.4); Monocytes # 0.6 10^3/uL (0.2-0.9); Monocytes % 10.5 %; Neutrophils # 3.68 10^3/uL (1.8-7.7); Neutrophils % 61.1 %; Nucleated Red Blood Cells % 0 %; Platelet Count 176 10^3/cmm (157-399); Red Blood Count 3.27 10^6/uL (3.85-5.65); Red Cell Distribution Width 14.4 % (12.1-15.1); White Blood Count 6.02 10^3/uL (3.29-11.43)
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
[2023-04-21 11:30] LABS: Alanine Aminotransferase 11 U/L (0-41); Albumin Level 3.1 g/dL (3.5-5.2); Alkaline Phosphatase 108 U/L (40-130); Anion Gap 19.7 (5-19); Aspartate Amino Transferase 22 U/L (0-40); Blood Urea Nitrogen 40 mg/dL (8-23); Calcium 8.5 mg/dL (8.5-10.5); Carbon Dioxide 21 mmol/L (22-29); Chloride 104 mmol/L (98-107); Creatinine Clr Calc Pharmacy 15.1215; Globulin 3.6 g/dL (1.3-4.6); Glucose 129 mg/dL (65-115); NT Pro B Type Natriuretic Pept 32886 pg/mL (0-125); Osmolality Calculated 303 mOsm/kg (285-295); Potassium 3.7 mmol/L (3.5-5.1); Sodium 141 mmol/L (136-145); Total Bilirubin 0.3 mg/dL (0.15-1.2); Total Protein 6.7 g/dL (6.6-8.7)
== END 2023-04-21 12:42 | disposition home or self-care (01) ==
PROVIDERS: Emergency Provider Emergency Medicine; PCP Family Medicine
DX: E11.22 Type 2 diabetes mellitus with diabetic chronic kidney disease (principal); I13.0 Hypertensive heart and chronic kidney disease with heart failure and stage 1 through stage 4 chronic kidney disease, or unspecified chronic kidney disease; N18.30 Chronic kidney disease, stage 3 unspecified; I50.9 Heart failure, unspecified; Z95.810 Presence of automatic (implantable) cardiac defibrillator; I25.5 Ischemic cardiomyopathy; E78.5 Hyperlipidemia, unspecified; J44.9 Chronic obstructive pulmonary disease, unspecified; Z95.1 Presence of aortocoronary bypass graft; F17.210 Nicotine dependence, cigarettes, uncomplicated; Z79.82 Long term (current) use of aspirin; Z79.4 Long term (current) use of insulin
CPT/HCPCS: 71045; 80053; 83880; 85025; 93005; 99285

== ENCOUNTER → 2023-04-28 14:18 | Outpatient (BNVA) | payer MEDICARE, SELFPAY | PROVIDERS: PCP Family Medicine; Visit Provider Internal Medicine Cardiovascular Disease | DX: I13.0 Hypertensive heart and chronic kidney disease with heart failure and stage 1 through stage 4 chronic kidney disease, or unspecified chronic kidney disease (principal); I50.33 Acute on chronic diastolic (congestive) heart failure; E11.22 Type 2 diabetes mellitus with diabetic chronic kidney disease; F17.210 Nicotine dependence, cigarettes, uncomplicated; N18.30 Chronic kidney disease, stage 3 unspecified; Z79.84 Long term (current) use of oral hypoglycemic drugs; Z95.810 Presence of automatic (implantable) cardiac defibrillator; I25.10 Atherosclerotic heart disease of native coronary artery without angina pectoris; E78.2 Mixed hyperlipidemia; I25.5 Ischemic cardiomyopathy | CPT/HCPCS: 99214 ==

== ENCOUNTER → 2023-05-06 08:39 | Outpatient (BNVA) | payer MEDICARE, SELFPAY | PROVIDERS: PCP Family Medicine; Visit Provider Internal Medicine Cardiovascular Disease | DX: R06.02 Shortness of breath (principal); I10 Essential (primary) hypertension | CPT/HCPCS: 36415; 80048; 83880 ==

== ENCOUNTER 2023-05-08 11:04 | Emergency (ER) | payer MEDICARE, SELFPAY ==
[2023-05-08] VITALS (25 sets, daily range): BP systolic 156–195; BP diastolic 64–105; PULSE 60–117; RESP 16–32; TEMP 36.7; O2SAT 88–98; BMI 25.3
--- NOTE | 2023-05-08 11:15 | ECG_ITS ---
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 Measurements Intervals [place] Rate: 60 P: 256 NC: 139 QRS: -85 QRSD: 136 T: 92 QT: 475 QTc: 475 Interpretive Statements ELECTRONIC ATRIAL PACEMAKER ELECTRONIC VENTRICULAR PACEMAKER Compared to ECG 04/21/2023 10:46:57 No significant changes Electronically Signed On 05-08-2023 23:52:46 CDT by Kurtis Hahn M.D. [id number]
--- NOTE | 2023-05-08 11:15 | XRR_ITS ---
PROCEDURE INFORMATION: Exam: XR Chest Exam date and time: 05/08/2023 11:54 AM Age: 72 years old Clinical indication: Dyspnea; Prior surgery; Surgery date: 6+ months; Surgery type: Open heart, pacemaker, defibrillator TECHNIQUE: Imaging protocol: Radiologic exam of the chest. Views: 1 view. COMPARISON: CR XR chest 1V portable [id number] 04/21/2023 10:59 AM FINDINGS: Lungs: No consolidation. Pleural spaces: No pleural effusion. No pneumothorax. Heart/Mediastinum: No cardiomegaly. Bones/joints: No acute findings. XR/XR chest 1V portable [id number] IMPRESSION: No acute findings.
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
[2023-05-08 11:53] LABS: Basophils # 0.1 10^3/uL (0.0-0.1); Basophils % 1.8 %; Eosinophils # 0.2 10^3/uL (0.0-0.8); Eosinophils % 4.3 %; Hematocrit 28.5 % (37-53); Lymphocytes # 1.1 10^3/uL (0.8-4.8); Lymphocytes % 24.8 %; Mean Corpuscular HGB Conc 31.2 g/dL (30-55); Mean Corpuscular Hemoglobin 30.8 pg (27-33); Mean Corpuscular Volume 98.6 fl (82-101); Mean Platelet Volume 11.8 fL (7.4-10.4); Monocytes # 0.4 10^3/uL (0.2-0.9); Neutrophils # 2.65 10^3/uL (1.8-7.7); Neutrophils % 59.6 %; Nucleated Red Blood Cells % 0 %; Platelet Count 139 10^3/cmm (157-399); Red Blood Count 2.89 10^6/uL (3.85-5.65); Red Cell Distribution Width 14.3 % (12.1-15.1); White Blood Count 4.44 10^3/uL (3.29-11.43)
--- NOTE | 2023-05-08 12:18 | PC.PHAR ---
pt states he takes care of his own medications-pt states his entresto 97-103 one tab bid,lasix 40mg daily filled 03/03/23 30d/s-gemfibrozil 600mg bid filld 04/26/23 30d/s-jardiance 10mg daily filled 04/14/23 30d/s-prilosec 20mg daily filled 03/30/23 30d/s was all dced on 05/04/23-pt states he does not take zoloft 100mg daily anymore ext shows last filled 04/26/23 30d/s pt states the pharmacy filled it but hes not taking it-pt states he doesnt use flonase 2 s daily ext shows last filled 04/26/23 30d/s-pt states he takes flexeril 10mg bid rx filled 04/26/23 30d/s 10mg po tid prn-pt states only takes the medications entered
[2023-05-08 12:23] LABS: Troponin(5th) Baseline 103 ng/L (0-15)
[2023-05-08 12:24] LABS: Alanine Aminotransferase 11 U/L (0-41); Albumin Level 3.3 g/dL (3.5-5.2); Alkaline Phosphatase 105 U/L (40-130); Aspartate Amino Transferase 19 U/L (0-40); Blood Urea Nitrogen 57 mg/dL (8-23); Calcium 8.6 mg/dL (8.5-10.5); Carbon Dioxide 22 mmol/L (22-29); Chloride 109 mmol/L (98-107); Creatinine Clr Calc Pharmacy 16.5938; Globulin 3.2 g/dL (1.3-4.6); Glucose 138 mg/dL (65-115); NT Pro B Type Natriuretic Pept 34198 pg/mL (0-125); Osmolality Calculated 312 mOsm/kg (285-295); Sodium 142 mmol/L (136-145); Total Bilirubin 0.2 mg/dL (0.15-1.2); Total Protein 6.5 g/dL (6.6-8.7)
--- NOTE | 2023-05-08 13:07 | ECG_ITS ---
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 Measurements Intervals [place] Rate: 60 P: 255 [place]: 142 QRS: -81 QRSD: 135 T: 75 QT: 478 QTc: 478 Interpretive Statements ELECTRONIC ATRIAL PACEMAKER ELECTRONIC VENTRICULAR PACEMAKER Compared to ECG 05/08/2023 11:49:24 No significant changes Electronically Signed On 05-08-2023 23:57:59 CDT by Kurtis Hahn M.D. [id number]
[2023-05-08] MEDS: FUROsemide 100 MG in sodium chloride 0.9% 40 ML 10 MG IV (13:21)
[2023-05-08 14:16] LABS: Troponin 5 2HR 90.09 ng/L (0-15)
[2023-05-08 14:17] LABS: Troponin 5 2HR Delta -12.91 ABS# (0-10)
--- NOTE | 2023-05-08 15:02 | PC.NURSE ---
Received a phone call from Dr. Pederson who asked that Lasix drip stopped however given pt Lasix 100mg ivp and start a nayak.
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
[2023-05-08] MEDS: FUROsemide 10 mg/mL SDV 10mL 100 MG IVP (15:16)
--- NOTE | 2023-05-08 15:32 | PC.NURSE ---
this pattern chart writer informed pt of the request from provider to place a nayak, pt refused stating they did that last time and they just about killed me .
[2023-05-08 17:00] LABS: Reticulocyte % 1.1 % (0.5-2.0)
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
--- NOTE | 2023-05-09 15:34 | PC.NURSE ---
NEW RX AND RX CHANGES CALLED INTO [facility] IN [place], [place] PER PT REQUEST. CALLED IN BY MARIANNE PRADHAN.
== END 2023-05-08 18:15 | disposition home or self-care (01) ==
LOC: ER 13:12 → ER IP 17:15
PROVIDERS: Student in an Organized Health Care Education/Training Program; Emergency Provider Internal Medicine; PCP Family Medicine
DX: I13.0 Hypertensive heart and chronic kidney disease with heart failure and stage 1 through stage 4 chronic kidney disease, or unspecified chronic kidney disease (principal); E11.22 Type 2 diabetes mellitus with diabetic chronic kidney disease; N18.30 Chronic kidney disease, stage 3 unspecified; I50.9 Heart failure, unspecified; R06.00 Dyspnea, unspecified; D64.9 Anemia, unspecified; F17.210 Nicotine dependence, cigarettes, uncomplicated; Z95.1 Presence of aortocoronary bypass graft; Z95.810 Presence of automatic (implantable) cardiac defibrillator; I25.5 Ischemic cardiomyopathy; E78.5 Hyperlipidemia, unspecified; J44.9 Chronic obstructive pulmonary disease, unspecified
CPT/HCPCS: 36415; 71045; 80048; 80053; 83880; 84484; 85025; 85045; 93005; 96365; 96366; 99285; J1940

== ENCOUNTER → 2023-05-11 23:48 | Outpatient (BNVA) | payer MEDICARE, SELFPAY | PROVIDERS: PCP Family Medicine; Visit Provider Internal Medicine Cardiovascular Disease | DX: Z45.02 Encounter for adjustment and management of automatic implantable cardiac defibrillator (principal) | CPT/HCPCS: 93296 ==